=== PATIENT | female | born 1965 | race African-American/Black ===

== ENCOUNTER 2016-11-07 11:15 | Inpatient (IN) | payer OTHER ==
[2016-11-07 11:31] VITALS: BMI 31.8
--- NOTE | 2016-11-07 12:44 | HP ---
CIWA Score - CIWA Score Nausea/Vomitin-Mild Nausea/No Vomiting Muscle Tremors: 4-Moderate,w/Arms Extend Anxiety: 4-Mod. Anxious/Guarded Agitation: 1-Slight > Activity Paroxysmal Sweats: 1-Minimal Palms Moist Orientation: 0-Oriented Tacttile Disturbances: 1-Very Mild Itch/Numbness Auditory Disturbances: 1-Very Mild Visual Disturbances: 1-Very Mild Sensitivity Headache: 1-Very Mild CIWA-Ar Total Score: 15 Admission ROS BHS - HPI Chief Complaint: I want to nip it in the bud, get help while I can to stop using Allergies/Adverse Reactions: Allergies Allergy/AdvReac Type Severity Reaction Status Date / Time No Known Allergies Allergy Verified 11/07/16 12:08 History of Present Illness: 51 yo woman here for detox from alcohol, crack use. Last detox here in 2016. No seizures. Also HIV+, adherent with meds. Exam Limitations: Clinical Condition - Ebola screening Have you traveled outside of the country in the last 21 days: No Have you had contact with anyone from an Ebola affected area: No Have you been sick,other than usual withdrawal symptoms: No Do you have a fever: No - Review of Systems Constitutional: Loss of Appetite, Changes in sleep EENT: reports: Blurred Vision Respiratory: reports: No Symptoms reported Cardiac: reports: No Symptoms Reported GI: reports: Poor Appetite : reports: No Symptoms Reported Musculoskeletal: reports: No Symptoms Reported Integumentary: reports: Dryness Neuro: reports: Headache, Tremors Endocrine: reports: No Symptoms Reported Hematology: reports: No Symptoms Reported Psychiatric: reports: Judgement Intact, Mood/Affect Appropiate, Orientated x3, Anxious Other Systems: Reviewed and Negative Patient History - Patient Medical History Hx Anemia: No Hx Asthma: No Hx Chronic Obstructive Pulmonary Disease (COPD): No Hx Cancer: No Hx Cardiac Disorders: No Hx Congestive Heart Failure: No Hx Hypertension: Yes Hx Hypercholesterolemia: No Hx Pacemaker: No HX Cerebrovascular Accident: No Hx Seizures: No Hx Dementia: No Hx Diabetes: No Hx Gastrointestinal Disorders: No Hx Liver Disease: No Hx Genitourinary Disorders: No Hx Sexually Transmitted Disorders: Yes (treated for syphlis years ago by injection) Hx Renal Disease (ESRD): No Hx Thyroid Disease: No Hx Human Immunodeficiency Virus (HIV): Yes (diagnosed 1990, T cells about 250; vl <20) Hx Hepatitis C: No Hx Depression: Yes (on meds) Hx Suicide Attempt: No Hx Bipolar Disorder: Yes Hx Schizophrenia: Yes - Patient Surgical History Past Surgical History: Yes Hx Neurologic Surgery: No Hx Cataract Extraction: No Hx Cardiac Surgery: No Hx Lung Surgery: No Hx Breast Surgery: No Hx Breast Biopsy: No Hx Abdominal Surgery: No Hx Appendectomy: No Hx Cholecystectomy: No Hx Genitourinary Surgery: No Hx Section: No Hx Orthopedic Surgery: No Other Surgical History: excision of anal warts Anesthesia Reaction: No - PPD History Previous Implant?: Yes Documented Results: Negative w/proof Date: 10/09/15 Results: 0mm PPD to be Administered?: Yes - Reproductive History Patient is a Female of Child Bearing Age (11 -55 yrs old): Yes Last Menstrual Period: 12/11/15 Patient : No - Smoking Cessation Smoking history: Current every day smoker Have you smoked in the past 12 months: Yes Aproximately how many cigarettes per day: 4 Hx Chewing Tobacco Use: No Initiated information on smoking cessation: Yes 'Breaking Loose' booklet given: 11/07/16 (give on floor) - Substance & Tx. History Hx Alcohol Use: Yes Hx Substance Use: Yes Substance Use Type: Alcohol, Cocaine Hx Substance Use Treatment: Yes (detox, rehab) - Substances Abused Alcohol Route: Oral Frequency: Daily Amount used: Vodka(2 pints)/beer(3-40 oz) Age of first use: 14 Date of Last Use: 11/07/16 Crack Route: Smoking Frequency: 1-2 times per week Amount used: $400 Age of first use: 20 Date of Last Use: 11/06/16 Family Disease History - Family Disease History Family Disease History: CA: Sister (CA survivor), Other: Father (, etoh) , Mother (leukemia ) Admission Physical Exam BHS - Vital Signs Vital Signs: Vital Signs - 24 hr 11/07/16 11:28 Temperature 98.8 F Pulse Rate 81 Respiratory 20 Rate Blood Pressure 134/72 - Physical General Appearance: Yes: Nourished, Appropriately Dressed, Mild Distress, Obese , Tremorous, Anxious HEENTM: Yes: Hearing grossly Normal, Normal ENT Inspection, Normocephalic, Normal Voice, Pharynx Normal Respiratory: Yes: Normal Breath Sounds, No Respiratory Distress Neck: Yes: No masses,lesions,Nodules, Supple Breast: Yes: Breast Exam Deferred Cardiology: Yes: Regular Rhythm, Regular Rate Abdominal: Yes: Soft Genitourinary: Yes: Frequency Back: Yes: Normal Inspection Musculoskeletal: Yes: full range of Motion, Gait Steady Extremities: Yes: Normal Inspection, Normal Range of Motion, Non-Tender Neurological: Yes: Fully Oriented, Normal Mood/Affect, Normal Response Integumentary: Yes: Normal Color, Warm Lymphatic: Yes: Within Normal Limits - Diagnostic (1) Alcohol dependence with uncomplicated withdrawal Current Visit: Yes Status: Chronic (2) Cocaine dependence Current Visit: Yes Status: Chronic Qualifiers: Substance use status: uncomplicated Qualified Code(s): F14.20 - Cocaine dependence, uncomplicated (3) HIV disease Current Visit: Yes Status: Chronic (4) HTN (hypertension) Current Visit: Yes Status: Chronic Qualifiers: Hypertension type: essential hypertension Qualified Code(s): I10 - Essential (primary) hypertension (5) Nicotine dependence Current Visit: Yes Status: Chronic Qualifiers: Nicotine product type: cigarettes Substance use status: uncomplicated Qualified Code(s): F17.210 - Nicotine dependence, cigarettes, uncomplicated (6) Diabetes mellitus type 2, diet-controlled Current Visit: Yes Status: Chronic Comment: [facility] 135 (7) Obesity (BMI 30.0-34.9) Current Visit: Yes Status: Chronic (8) Syphilis contact, treated Current Visit: Yes Status: Resolved Comment: treated years ago by injection Cleared for Admission [facility] - Detox or Rehab [facility] Level of Care: Medically Managed Detox Regimen/Protocol: Librium [facility] Breath Alcohol Content Breath Alcohol Content: 0.041 Urine Pregancy Test - Result Urine Test Results: Negative- NO Line Present Urine Drug Screen - Results Drug Screen Negative: No Urine Drug Screen Results: SAMUEL-Cocaine
[2016-11-07] MEDS ORDERED: MAGNESIUM HYDROX 2400MG/30ML ORAL SUSPENSION 30 ML CUP PO PRN (12:59)
[2016-11-07] MEDS ORDERED: P-EPHED 60MG/TRIPROLIDI 2.5MG TABLET PO PRN (12:59)
[2016-11-07] MEDS ORDERED: MENTHOL/PHENOL 1 EACH UD MM PRN (12:59)
[2016-11-07] MEDS ORDERED: LOPERAMIDE HCL 2 MG CAPSULE PO PRN (12:59)
[2016-11-07] MEDS ORDERED: MAG HYDROX/AL HYDROX/SIMETH 30 ML UNIT-DOSE CUP PO PRN (12:59)
[2016-11-07] MEDS ORDERED: MAGNESIUM CITRATE 300 ML BOTTLE PO PRN (12:59)
[2016-11-07] MEDS ORDERED: IBUPROFEN 400 MG TABLET (FP) PO PRN (12:59)
[2016-11-07] MEDS ORDERED: ACETAMINOPHEN 325 MG TABLET (FP) PO PRN (12:59)
[2016-11-07] MEDS ORDERED: guaiFENesin/D-METHORPHAN HB 10 ML UNIT-DOSE CUPS PO PRN (12:59)
[2016-11-07] MEDS ORDERED: hydrOXYzine PAMOATE 50 MG CAPSULE (FP) PO PRN (12:59)
[2016-11-07] MEDS ORDERED: diphenhydrAMINE HCL 50 MG CAPSULE PO PRN (12:59)
[2016-11-07] MEDS ORDERED: chlordiazePOXIDE HCL 25 MG CAPSULE PO PRN (12:59)
[2016-11-07] MEDS ORDERED: chlordiazePOXIDE HCL 25 MG CAPSULE PO ONE (12:59)
[2016-11-07] MEDS: NICOTINE 7 MG/24 HOURS TOPICAL PATCH TD SCH (14:39)
[2016-11-07] MEDS: amLODIPine BESYLATE 10 MG TABLET (FP) PO SCH (14:40)
[2016-11-07] MEDS: chlordiazePOXIDE HCL 25 MG CAPSULE PO SCH ×2 (17:54→22:23)
[2016-11-07 19:24] LABS: URINE APPEARANCE CLEAR; URINE BILIRUBIN NEGATIVE (NEGATIVE); URINE BLOOD NEGATIVE (NEGATIVE); URINE COLOR COLORLESS; URINE GLUCOSE (UA) NEGATIVE (NEGATIVE); URINE KETONE NEGATIVE (NEGATIVE); URINE LEUK ESTERASE NEGATIVE (NEGATIVE); URINE NITRITE NEGATIVE (NEGATIVE); URINE PROTEIN NEGATIVE (NEGATIVE); URINE UROBILINOGEN NEGATIVE E.U./dl (0.2-1.0)
[2016-11-07] MEDS: THIAMINE HCL 100 MG TABLET (FP) PO SCH (22:23)
[2016-11-07] MEDS: ATORVASTATIN CA 20 MG TABLET (FP) PO SCH (22:59)
[2016-11-08] MEDS: chlordiazePOXIDE HCL 25 MG CAPSULE PO SCH ×4 (04:48→22:28)
[2016-11-08] MEDS: PRENATAL VITAMINS W/ FOLIC ACID TABLET (FP) PO SCH (10:13)
[2016-11-08] MEDS: amLODIPine BESYLATE 10 MG TABLET (FP) PO SCH (10:13)
[2016-11-08] MEDS: NICOTINE 7 MG/24 HOURS TOPICAL PATCH TD SCH (10:14)
[2016-11-08 10:25] LABS: MCH 31.9 pg (25.7-33.7); MCHC 32.6 g/dl (32.0-36.0); MEAN CELL VOLUME 97.8 fl (80-96); MEAN PLT VOLUME 8.1 fl (7.5-11.1); PLATELET COUNT 254 K/MM3 (134-434); RDW 14.3 % (11.6-15.6); WHITE BLOOD COUNT 5.1 K/mm3 (4.0-10.0)
[2016-11-08 10:51] LABS: ALBUMIN 3.2 g/dl (3.4-5.0); ALK PHOS 160 U/L (45-117); ANION GAP 9 (8-16); BILIRUBIN,TOTAL 0.3 mg/dL (0.2-1.0); CALCIUM 8.7 mg/dL (8.5-10.1); CO2 28 mmol/L (21-32); CREATININE 0.7 mg/dL (0.55-1.02); GLUCOSE,RANDOM 177 mg/dL (74-106); SGOT/AST 15 U/L (15-37); SGPT/ALT 21 U/L (12-78); TOT PROT 6.6 g/dl (6.4-8.2)
--- NOTE | 2016-11-08 11:44 | PN ---
S CIWA - CIWA Score Nausea/Vomitin Muscle Tremors: 3 Anxiety: 3 Agitation: 3 Paroxysmal Sweats: 1-Minimal Palms Moist Orientation: 0-Oriented Tacttile Disturbances: 1-Very Mild Itch/Numbness Auditory Disturbances: 1-Very Mild Visual Disturbances: 1-Very Mild Sensitivity Headache: 2-Mild CIWA-Ar Total Score: 18 BHS Progress Note (SOAP) Subjective: ALERT,IRRITABLE,ANXIOUS,INTERRUPTED SLEEP,TREMOR,PAIN IN THE BODY Objective: 11/08/16 11:41 Vital Signs Temperature 98.2 F 11/08/16 10:40 Pulse Rate 88 11/08/16 10:40 Respiratory Rate 20 11/08/16 10:40 Blood Pressure 145/95 11/08/16 10:40 O2 Sat by Pulse Oximetry (%) EKG NSR NO CHEST PAIN,NO SOB,NO DIZZINESS Laboratory Last Values WBC 5.1 K/mm3 (4.0-10.0) 11/08/16 07:45 RBC 4.24 M/mm3 (3.60-5.2) 11/08/16 07:45 Hgb 13.5 GM/dL (10.7-15.3) 11/08/16 07:45 Hct 41.5 % (32.4-45.2) 11/08/16 07:45 MCV 97.8 fl (80-96) H 11/08/16 07:45 MCHC 32.6 g/dl (32.0-36.0) 11/08/16 07:45 RDW 14.3 % (11.6-15.6) 11/08/16 07:45 Plt Count 254 K/MM3 (134-434) 11/08/16 07:45 MPV 8.1 fl (7.5-11.1) 11/08/16 07:45 Sodium 140 mmol/L (136-145) 11/08/16 07:45 Potassium 3.6 mmol/L (3.5-5.1) 11/08/16 07:45 Chloride 103 mmol/L (98-107) 11/08/16 07:45 Carbon Dioxide 28 mmol/L (21-32) 11/08/16 07:45 Anion Gap 9 (8-16) 11/08/16 07:45 BUN 12 mg/dL (7-18) 11/08/16 07:45 Creatinine 0.7 mg/dL (0.55-1.02) D 11/08/16 07:45 Creat Clearance w eGFR > 60 (>60) 11/08/16 07:45 POC Glucometer 135 UNITS (()) 11/07/16 12:41 Random Glucose 177 mg/dL (74-106) H D 11/08/16 07:45 Calcium 8.7 mg/dL (8.5-10.1) 11/08/16 07:45 Total Bilirubin 0.3 mg/dL (0.2-1.0) D 11/08/16 07:45 AST 15 U/L (15-37) D 11/08/16 07:45 ALT 21 U/L (12-78) D 11/08/16 07:45 Alkaline Phosphatase 160 U/L (45-117) H D 11/08/16 07:45 Total Protein 6.6 g/dl (6.4-8.2) 11/08/16 07:45 Albumin 3.2 g/dl (3.4-5.0) L 11/08/16 07:45 Urine Color Colorless 11/07/16 Unknown Urine Appearance Clear 11/07/16 Unknown Urine pH 6.0 (5.0-8.0) 11/07/16 Unknown Ur Specific [place] 1.003 (1.001-1.035) 11/07/16 Unknown Urine Protein Negative (NEGATIVE) 11/07/16 Unknown Urine Glucose (UA) Negative (NEGATIVE) 11/07/16 Unknown Urine Ketones Negative (NEGATIVE) 11/07/16 Unknown Urine Blood Negative (NEGATIVE) 11/07/16 Unknown Urine Nitrite Negative (NEGATIVE) 11/07/16 Unknown Urine Bilirubin Negative (NEGATIVE) 11/07/16 Unknown Urine Urobilinogen Negative E.U./dl (0.2-1.0) 11/07/16 Unknown Ur Leukocyte Esterase Negative (NEGATIVE) 11/07/16 Unknown 11/08/16 11:43 LABS PENDING Assessment: 11/08/16 11:43 WITHDRAWAL SYMPTOM Plan: CONTINUE DETOX,BGM MONITORING
[2016-11-08] MEDS: THIAMINE HCL 100 MG TABLET (FP) PO SCH (22:28)
[2016-11-08] MEDS: ATORVASTATIN CA 20 MG TABLET (FP) PO SCH (22:28)
[2016-11-09] MEDS: chlordiazePOXIDE HCL 25 MG CAPSULE PO SCH ×2 (05:15→10:08)
[2016-11-09] MEDS: amLODIPine BESYLATE 10 MG TABLET (FP) PO SCH (10:07)
[2016-11-09] MEDS: PRENATAL VITAMINS W/ FOLIC ACID TABLET (FP) PO SCH (10:07)
[2016-11-09] MEDS: NICOTINE 7 MG/24 HOURS TOPICAL PATCH TD SCH (10:08)
--- NOTE | 2016-11-09 10:57 | PN ---
S CIWA - CIWA Score Nausea/Vomitin Muscle Tremors: 2 Anxiety: 2 Agitation: 2 Paroxysmal Sweats: 3 Orientation: 0-Oriented Tacttile Disturbances: 2-Mild Itch/Numbness/Burn Auditory Disturbances: 0-None Visual Disturbances: 0-None Headache: 0-None Present CIWA-Ar Total Score: 13 BHS Progress Note (SOAP) Subjective: feeling better, sweats, Objective: 11/09/16 10:55 Vital Signs Temperature 97.7 F 11/09/16 09:59 Pulse Rate 82 11/09/16 09:59 Respiratory Rate 18 11/09/16 09:59 Blood Pressure 132/87 11/09/16 09:59 O2 Sat by Pulse Oximetry (%) Laboratory Tests 11/07/16 11/07/16 11/08/16 12:41 Unknown 04:50 WBC RBC Hgb Hct MCV MCHC RDW Plt Count MPV Sodium Potassium Chloride Carbon Dioxide Anion Gap BUN Creatinine Creat Clearance w eGFR POC Glucometer 135 173 Random Glucose Calcium Total Bilirubin AST ALT Alkaline Phosphatase Total Protein Albumin Urine Color Colorless Urine Appearance Clear Urine pH 6.0 Ur Specific [place] 1.003 Urine Protein Negative Urine Glucose (UA) Negative Urine Ketones Negative Urine Blood Negative Urine Nitrite Negative Urine Bilirubin Negative Urine Urobilinogen Negative Ur Leukocyte Esterase Negative RPR Titer T.pallidum Ab (MHA) 11/08/16 11/08/16 11/08/16 07:45 07:45 07:45 WBC 5.1 RBC 4.24 Hgb 13.5 Hct 41.5 MCV 97.8 H MCHC 32.6 RDW 14.3 Plt Count 254 MPV 8.1 Sodium 140 Potassium 3.6 Chloride 103 Carbon Dioxide 28 Anion Gap 9 BUN 12 Creatinine 0.7 D Creat Clearance w eGFR > 60 POC Glucometer Random Glucose 177 H D Calcium 8.7 Total Bilirubin 0.3 D AST 15 D ALT 21 D Alkaline Phosphatase 160 H D Total Protein 6.6 Albumin 3.2 L Urine Color Urine Appearance Urine pH Ur Specific [place] Urine Protein Urine Glucose (UA) Urine Ketones Urine Blood Urine Nitrite Urine Bilirubin Urine Urobilinogen Ur Leukocyte Esterase RPR Titer Reactive 1:1 H T.pallidum Ab (MHA) Previously reactive pt aox3 in nad ambulating Assessment: 11/09/16 10:55 withdrawal sx;s Plan: cont. detox increase fluids
--- NOTE | 2016-11-09 13:34 | CONSULT ---
[facility] Psychiatric Consult - Data Date of interview: 11/09/16 Admission source: [facility] Identifying data: Readmission to [facility] for this 51 y/o AA female seeking detox treatment for alcohol and cocaine (crack) dependence.Patient is , a mother of five,homeless,unemployed and supported on SSI benefits. Substance Abuse History: - Smoking Cessation. Smoking history: Current every day smoker. Have you smoked in the past 12 months: Yes. Aproximately how many cigarettes per day: 4. Hx Chewing Tobacco Use: No. Initiated information on smoking cessation: Yes. 'Breaking Loose' booklet given: 11/07/16 (give on floor ). - Substance & Tx. History. Hx Alcohol Use: Yes. Hx Substance Use: Yes. Substance Use Type: Alcohol, Cocaine. Hx Substance Use Treatment: Yes (detox, rehab). - Substances Abused. Alcohol. Route: Oral. Frequency: Daily. Amount used: Vodka(2 pints)/beer(3-40 oz). Age of first use: 14. Date of Last Use: 11/07/16. Crack. Route: Smoking. Frequency: 1-2 times per week. Amount used: $400. Age of first use: 20. Date of Last Use: 11/06/16. Confirmed by patient. Medical History: Hypertension,HIV infection,herpes genitalis and past treatment for syphilis. Psychiatric History: History of multiple psychiatric hospitalizations.Diagnosed with MDD.Prescribed celexa 30 mg/day + trazodone 50 mg/hs (self-report).Patient states that she gets her OPD care at the [facility] in [facility].Ms Flowers denies history of suicide attempts. Physical/Sexual Abuse/Trauma History: Patient denies. Mental Status Exam - Mental Status Exam Alert and Oriented to: Time, Place, Person Cognitive Function: Good Patient Appearance: Well Groomed Mood: Withdrawn, Anxious, Apprehensive Affect: Appropriate Patient Behavior: Fatigued, Appropriate, Cooperative Speech Pattern: Clear, Appropriate Voice Loudness: Normal Thought Process: Goal Oriented Thought Disorder: Not Present Hallucinations: Denies Suicidal Ideation: Denies Homicidal Ideation: Denies Insight/Judgement: Poor Sleep: Poorly, Difficulty falling asleep Muscle strength/Tone: Normal Gait/Station: Normal Psychiatric Findings - Problem List ([place] 1, 2,3) (1) Alcohol dependence with uncomplicated withdrawal Current Visit: Yes Status: Acute (2) Cocaine dependence Current Visit: Yes Status: Acute Qualifiers: Substance use status: uncomplicated Qualified Code(s): F14.20 - Cocaine dependence, uncomplicated (3) Nicotine dependence Current Visit: Yes Status: Acute Qualifiers: Nicotine product type: cigarettes Substance use status: uncomplicated Qualified Code(s): F17.210 - Nicotine dependence, cigarettes, uncomplicated (4) Drug-induced mood disorder Current Visit: Yes Status: Acute (5) MDD (major depressive disorder) Current Visit: Yes Status: Acute (6) Diabetes mellitus type 2, diet-controlled Current Visit: Yes Status: Chronic Comment: bg 135 (7) HIV disease Current Visit: Yes Status: Chronic (8) HTN (hypertension) Current Visit: Yes Status: Chronic Qualifiers: Hypertension type: essential hypertension Qualified Code(s): I10 - Essential (primary) hypertension (9) Obesity (BMI 30.0-34.9) Current Visit: Yes Status: Chronic (10) Syphilis contact, treated Current Visit: Yes Status: Resolved Comment: treated years ago by injection (11) Insomnia Current Visit: Yes Status: Acute - Initial Treatment Plan Initial Treatment Plan: Old records are reviewed.Psychoeducation.Detoxification.Medications : celexa 20 mg po daily + trazodone 50 mg po hs.Side effects/benefits of both drugs are discussed with the patient.She is in agreement with this careplan.Observation.Patient states that she will not need scripts at discharge (still with available refills from OPD provider).
[2016-11-09] MEDS ORDERED: CITALOPRAM HYDROBROMIDE 10 MG TABLET (FP) PO ONE (14:30)
[2016-11-09] MEDS ORDERED: CITALOPRAM HYDROBROMIDE 20 MG TABLET (FP) PO ONE (15:45)
[2016-11-09] MEDS: chlordiazePOXIDE 5 MG CAPSULE PO SCH ×2 (17:09→22:11)
[2016-11-09] MEDS: traZODone HCL 50 MG TABLET (FP) PO SCH (22:10)
[2016-11-09] MEDS: ATORVASTATIN CA 20 MG TABLET (FP) PO SCH (22:10)
[2016-11-09] MEDS: THIAMINE HCL 100 MG TABLET (FP) PO SCH (22:10)
[2016-11-10] MEDS: chlordiazePOXIDE 5 MG CAPSULE PO SCH ×2 (06:03→10:31)
[2016-11-10] MEDS ORDERED: CITALOPRAM HYDROBROMIDE 10 MG TABLET (FP) PO SCH (10:00)
[2016-11-10] MEDS: amLODIPine BESYLATE 10 MG TABLET (FP) PO SCH (10:30)
[2016-11-10] MEDS: PRENATAL VITAMINS W/ FOLIC ACID TABLET (FP) PO SCH (10:30)
[2016-11-10] MEDS: NICOTINE 7 MG/24 HOURS TOPICAL PATCH TD SCH (10:30)
[2016-11-10] MEDS: CITALOPRAM HYDROBROMIDE 20 MG TABLET (FP) PO SCH (10:30)
--- NOTE | 2016-11-10 10:33 | PN ---
BHS Progress Note (SOAP) Subjective: sweats agitation Objective: 11/10/16 10:32 Vital Signs Temperature 96.7 F L 11/10/16 06:14 Pulse Rate 74 11/10/16 06:14 Respiratory Rate 18 11/10/16 06:14 Blood Pressure 112/67 11/10/16 06:14 O2 Sat by Pulse Oximetry (%) awake/alert ambulating no acute distress Assessment: 11/10/16 10:33 withdrawal sx Plan: continue detox increase fluids d/c in am
[2016-11-10] MEDS: chlordiazePOXIDE HCL 10 MG CAPSULE PO SCH ×2 (17:12→22:29)
[2016-11-10] MEDS: THIAMINE HCL 100 MG TABLET (FP) PO SCH (22:29)
[2016-11-10] MEDS: traZODone HCL 50 MG TABLET (FP) PO SCH (22:29)
[2016-11-10] MEDS: ATORVASTATIN CA 20 MG TABLET (FP) PO SCH (22:29)
--- NOTE | 2016-11-10 23:40 | EKG ---
Test Reason : Blood Pressure : / mmHG Vent. Rate : 081 BPM Atrial Rate : 081 BPM P-R Int : 176 ms QRS Dur : 114 ms QT Int : 384 ms P-R-T Axes : 069 -34 011 degrees QTc Int : 446 ms NORMAL SINUS RHYTHM LEFT AXIS DEVIATION INCOMPLETE LEFT BUNDLE BRANCH BLOCK MINIMAL VOLTAGE CRITERIA FOR LVH, MAY BE NORMAL VARIANT NONSPECIFIC T WAVE ABNORMALITY ABNORMAL ECG NO PREVIOUS ECGS AVAILABLE Confirmed by REYNALDO GARCIA, KRIS ([id number]) on 11/10/2016 11:40:29 PM Referred By: Confirmed By:KRIS JACOBS MD
[2016-11-11] MEDS: chlordiazePOXIDE HCL 10 MG CAPSULE PO SCH (05:56)
--- NOTE | 2016-11-11 08:59 | DS ---
[facility] Detox Discharge Summary Admission Date: 11/07/16 Discharge Date: 11/11/16 - History Present History: Alcohol Dependence, Cocaine Dependence - Physical Exam Results Vital Signs: Vital Signs Temperature 97.7 F 11/11/16 06:00 Pulse Rate 77 11/11/16 06:00 Respiratory Rate 18 11/11/16 06:00 Blood Pressure 121/78 11/11/16 06:00 O2 Sat by Pulse Oximetry (%) - Treatment Hospital Course: Detox Protocol Followed, Detoxed Safely, Responded well, Discharged Condition Good - Medication Discharge Medications: Ambulatory Orders Abacavir/Dolutegravir/Lamivudi [Triumeq Tablet] 1 each PO DAILY 11/07/16 Citalopram Hydrobromide [Celexa -] 30 mg PO DAILY 11/07/16 Trazodone HCl 50 mg PO HS 11/07/16 Amlodipine Besylate [Norvasc -] 10 mg PO DAILY #30 tablet 11/11/16 Atorvastatin Ca [Lipitor] 20 mg PO HS #30 tablet 11/11/16 Pravastatin Sodium [Pravachol -] 40 mg PO HS #30 tab 11/11/16 - Diagnosis (1) Alcohol dependence with uncomplicated withdrawal Current Visit: Yes Status: Chronic (2) Cocaine dependence Current Visit: Yes Status: Chronic Qualifiers: Substance use status: uncomplicated Qualified Code(s): F14.20 - Cocaine dependence, uncomplicated (3) Nicotine dependence Current Visit: Yes Status: Chronic Qualifiers: Nicotine product type: cigarettes Substance use status: uncomplicated Qualified Code(s): F17.210 - Nicotine dependence, cigarettes, uncomplicated (4) Diabetes mellitus type 2, diet-controlled Current Visit: Yes Status: Chronic (5) HIV disease Current Visit: Yes Status: Chronic (6) HTN (hypertension) Current Visit: Yes Status: Chronic Qualifiers: Hypertension type: essential hypertension Qualified Code(s): I10 - Essential (primary) hypertension (7) Obesity (BMI 30.0-34.9) Current Visit: Yes Status: Chronic - AMA Did Patient Leave Against Medical Advice: No
[2016-11-11] MEDS: PRENATAL VITAMINS W/ FOLIC ACID TABLET (FP) PO SCH (09:28)
[2016-11-11] MEDS: amLODIPine BESYLATE 10 MG TABLET (FP) PO SCH (09:28)
[2016-11-11] MEDS: NICOTINE 7 MG/24 HOURS TOPICAL PATCH TD SCH (09:28)
[2016-11-11] MEDS: CITALOPRAM HYDROBROMIDE 20 MG TABLET (FP) PO SCH (09:28)
[2016-11-11 09:48] VITALS: BP 133/68; PULSE 67; TEMP 98.4
== END 2016-11-11 09:44 | disposition other institution (70) | DRG 774 ==
LOC: YASAS 11:15 → Y6N 13:11
PROVIDERS: ADMIT Internal Medicine; ATTEND Internal Medicine Addiction Medicine
PROC: HZ2ZZZZ Detoxification Services for Substance Abuse Treatment (ICD-10-PCS; principal; 2016-11-07)
DX: F10.230 Alcohol dependence with withdrawal, uncomplicated (principal); F14.20 Cocaine dependence, uncomplicated; F17.210 Nicotine dependence, cigarettes, uncomplicated; F19.24 Other psychoactive substance dependence with psychoactive substance-induced mood disorder; F33.9 Major depressive disorder, recurrent, unspecified; R73.03 Prediabetes; Z21 Asymptomatic human immunodeficiency virus [HIV] infection status; I10 Essential (primary) hypertension; E66.9 Obesity, unspecified; Z68.31 Body mass index [BMI] 31.0-31.9, adult; G47.00 Insomnia, unspecified; Z87.42 Personal history of other diseases of the female genital tract
CPT/HCPCS: 36415; 80053; 81003; 85027; 86593; 86780; 93005; 93010

== ENCOUNTER 2016-11-11 09:52 | Inpatient (IN) | payer OTHER ==
[2016-11-11 10:59] VITALS: BMI 33.2
[2016-11-11] MEDS ORDERED: ACETAMINOPHEN 325 MG TABLET (FP) PO PRN (14:36)
[2016-11-11] MEDS ORDERED: MAGNESIUM CITRATE 300 ML BOTTLE PO PRN (14:36)
[2016-11-11] MEDS ORDERED: guaiFENesin/D-METHORPHAN HB 10 ML UNIT-DOSE CUPS PO PRN (14:36)
[2016-11-11] MEDS ORDERED: diphenhydrAMINE HCL 50 MG CAPSULE PO PRN (14:36)
[2016-11-11] MEDS ORDERED: LOPERAMIDE HCL 2 MG CAPSULE PO PRN (14:36)
[2016-11-11] MEDS ORDERED: MAG HYDROX/AL HYDROX/SIMETH 30 ML UNIT-DOSE CUP PO PRN (14:36)
[2016-11-11] MEDS ORDERED: P-EPHED 60MG/TRIPROLIDI 2.5MG TABLET PO PRN (14:36)
[2016-11-11] MEDS ORDERED: MAGNESIUM HYDROX 2400MG/30ML ORAL SUSPENSION 30 ML CUP PO PRN (14:36)
[2016-11-11] MEDS ORDERED: IBUPROFEN 400 MG TABLET (FP) PO PRN (14:36)
[2016-11-11] MEDS ORDERED: MENTHOL/PHENOL 1 EACH UD MM PRN (14:36)
[2016-11-11] MEDS ORDERED: VITAMINS A AND D TOPICAL OINTMENT 60 GM TUBE TP PRN (14:38)
--- NOTE | 2016-11-11 14:40 | HP ---
SHANTANU GARCIA Rehab Assess/Revision - Admission History Admitted to Rehab from: [facility] [place] Date of Admission to Rehab: 11/11/16 - Vital signs Vital Signs: Vital Signs Period Temp Pulse Resp BP Sys/Kaufman Pulse Ox Last 24 Hr 98.4 F-98.4 F 82-82 18-18 119-119/78-78 - Findings Detox History & Physical reviewed: Yes Concur with findings: Yes
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
[2016-11-11] MEDS ORDERED: PT OWN MED DRAWER 7, Y5N ONE (16:03)
[2016-11-11] MEDS: traZODone HCL 50 MG TABLET (FP) PO SCH (21:24)
[2016-11-11] MEDS: ATORVASTATIN CA 20 MG TABLET (FP) PO SCH (21:24)
[2016-11-11] MEDS ORDERED: THIAMINE HCL 100 MG TABLET (FP) PO SCH (22:00)
[2016-11-11] MEDS ORDERED: ATORVASTATIN CA 20 MG PO SCH (22:00)
[2016-11-12 07:22] VITALS: TEMP 98.1
[2016-11-12] MEDS ORDERED: PT OWN MED DRAWER 7, Y5N ONE ×3 (08:50→20:14)
[2016-11-12] MEDS ORDERED: CITALOPRAM HYDROBROMIDE 10 MG TABLET (FP) PO SCH (10:00)
[2016-11-12] MEDS ORDERED: NICOTINE 7 MG/24 HOURS TOPICAL PATCH TD SCH (10:00)
[2016-11-12] MEDS ORDERED: PRENATAL VITAMINS W/ FOLIC ACID TABLET (FP) PO SCH (10:00)
[2016-11-12] MEDS ORDERED: amLODIPine BESYLATE 10 MG TABLET (FP) PO SCH (10:00)
[2016-11-12] MEDS ORDERED: PATIENT'S OWN MEDICATION (NON-FORMULARY) (Amlodipine Besylate [Norvasc -] 10 MG) PO SCH (10:00)
[2016-11-12 11:20] VITALS: BP 144/81; PULSE 83
[2016-11-12] MEDS ORDERED: COLLOIDAL OATMEAL 1 BAR EACH TP PRN (14:30)
[2016-11-12] MEDS: ATORVASTATIN CA 20 MG TABLET (FP) PO SCH (23:08)
[2016-11-12] MEDS: traZODone HCL 50 MG TABLET (FP) PO SCH (23:08)
--- NOTE | 2016-11-30 15:04 | PN ---
S Progress Note Note: Patient left AMA this program 11/13/16.See staff notes for details.
== END 2016-11-12 20:20 | disposition left against medical advice (07) | DRG 770 ==
LOC: YASAS 09:52 → Y3E 09:55
PROVIDERS: ADMIT Psychiatry & Neurology Psychiatry; ATTEND Psychiatry & Neurology Psychiatry
PROC: HZ2ZZZZ Detoxification Services for Substance Abuse Treatment (ICD-10-PCS; principal; 2016-11-12)
DX: F10.20 Alcohol dependence, uncomplicated (principal); F14.20 Cocaine dependence, uncomplicated; F33.9 Major depressive disorder, recurrent, unspecified; I10 Essential (primary) hypertension; E11.9 Type 2 diabetes mellitus without complications; Z21 Asymptomatic human immunodeficiency virus [HIV] infection status

== ENCOUNTER 2017-01-11 08:19 | Inpatient (IN) | payer OTHER ==
[2017-01-11 09:49] VITALS: BMI 31.6
--- NOTE | 2017-01-11 12:39 | HP ---
Admission [facility] - [facility] Chief Complaint: REHAB TX FOR DRUG ADDICTION Allergies/Adverse Reactions: Allergies Allergy/AdvReac Type Severity Reaction Status Date / Time No Known Allergies Allergy Verified 11/07/16 12:08 History of Present Illness: 52 Y/O AA/FEMALE WITH A HX OF ALCOHOL AND COCAINE DEPENDENCE SEEKING REHAB TX. Exam Limitations: No Limitations - Ebola screening Have you traveled outside of the country in the last 21 days: No Have you had contact with anyone from an Ebola affected area: No Have you been sick,other than usual withdrawal symptoms: No Do you have a fever: No - Review of Systems Constitutional: Chills, Night Sweats, Changes in sleep EENT: reports: Blurred Vision (WEARS GLASSES), Dental Problems (MISSING UPPER TEETH) Respiratory: reports: No Symptoms reported Cardiac: reports: No Symptoms Reported GI: reports: Constipated, Diarrhea, Nausea, Vomiting, Abdominal cramping : reports: Frequency Musculoskeletal: reports: Back Pain Integumentary: reports: No Symptoms Reported Neuro: reports: Headache, Tremors, Unsteady Gait Endocrine: reports: Increased Urine Hematology: reports: No Symptoms Reported Psychiatric: reports: Orientated x3, Anxious, Depressed Other Systems: Reviewed and Negative Patient History - Patient Medical History Hx Anemia: No Hx Asthma: No Hx Chronic Obstructive Pulmonary Disease (COPD): No Hx Cancer: No Hx Cardiac Disorders: No Hx Congestive Heart Failure: No Hx Hypertension: Yes (ON MED) Hx Hypercholesterolemia: Yes (ON MED) Hx Pacemaker: No HX Cerebrovascular Accident: No Hx Seizures: No Hx Dementia: No Hx Diabetes: Yes (Control by diet-NO MEDS) Hx Gastrointestinal Disorders: No Hx Liver Disease: No Hx Genitourinary Disorders: No 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) Hx Renal Disease (ESRD): No Hx Thyroid Disease: No Hx Human Immunodeficiency Virus (HIV): Yes (diagnosed 1990, T cells about 250; vl <20) Hx Hepatitis C: No Hx Depression: Yes (ON MED) Hx Suicide Attempt: No (DENIES) Hx Bipolar Disorder: Yes Hx Schizophrenia: No - Patient Surgical History Past Surgical History: Yes Hx Neurologic Surgery: No Hx Cataract Extraction: No Hx Cardiac Surgery: No Hx Lung Surgery: No Hx Breast Surgery: No Hx Breast Biopsy: No Hx Abdominal Surgery: No Hx Appendectomy: No Hx Cholecystectomy: No Hx Genitourinary Surgery: No Hx Section: No Hx Orthopedic Surgery: No Hx Hysterectomy: No Other Surgical History: excision of anal warts Anesthesia Reaction: No - PPD History Previous Implant?: Yes Documented Results: Negative w/proof Date: 11/09/16 Results: 0mm PPD to be Administered?: No - Reproductive History Patient is a Female of Child Bearing Age (11 -55 yrs old): Yes Last Menstrual Period: 11/10/16 Patient : No - Smoking Cessation Smoking history: Current every day smoker Have you smoked in the past 12 months: Yes Aproximately how many cigarettes per day: 4 Hx Chewing Tobacco Use: No Initiated information on smoking cessation: Yes 'Breaking Loose' booklet given: 01/11/17 - Substance & Tx. History Hx Alcohol Use: Yes (VODKA/MALT LIQUOR) Hx Substance Use: Yes (COCAINE) Substance Use Type: Alcohol, Cocaine Hx Substance Use Treatment: Yes ([facility]) - Substances Abused VODKA/MALT LIQUOR Amount used: 1 PT/ 40 oz Age of first use: 14 Date of Last Use: 01/08/17 Cocaine Route: Smoking Frequency: 1-3 times last 30 days Amount used: $200-300 Age of first use: 20 Date of Last Use: 01/08/17 Family Disease History - Family Disease History Family Disease History: CA: Sister (CA survivor), Other: Father (, etoh) , Mother (leukemia ) Admission Physical Exam S - Vital Signs Vital Signs: Vital Signs - 24 hr 01/11/17 09:41 Temperature 96.6 F L Pulse Rate 83 Respiratory 19 Rate Blood Pressure 152/111 - Physical General Appearance: Yes: No Apparent Distress, Anxious HEENTM: Yes: EOMI, Normocephalic, PRINCE, Pharynx Normal Respiratory: Yes: Chest Non-Tender, Lungs Clear, Normal Breath Sounds, No Respiratory Distress Breast: Yes: Breast Exam Deferred Cardiology: Yes: Regular Rhythm, Regular Rate, S1, S2 Abdominal: Yes: Normal Bowel Sounds, Non Tender, Soft Genitourinary: Yes: Other (N/C) Back: Yes: Within Normal Limits Musculoskeletal: Yes: full range of Motion, Gait Steady Extremities: Yes: Normal Range of Motion, Non-Tender Neurological: Yes: director of land II-XII NML intact, Fully Oriented, Alert Integumentary: Yes: Dry, Warm Lymphatic: Yes: Within Normal Limits - Diagnostic (1) Alcohol dependence with uncomplicated withdrawal Current Visit: Yes Status: Chronic (2) Diabetes mellitus type 2, diet-controlled Current Visit: No Status: Chronic Comment: bgm 135 (3) HIV disease Current Visit: No Status: Chronic (4) HTN (hypertension) Current Visit: Yes Status: Chronic Qualifiers: Hypertension type: essential hypertension (5) Nicotine dependence Current Visit: Yes Status: Acute Qualifiers: Nicotine product type: cigarettes Substance use status: in withdrawal Qualified Code(s): F17.213 - Nicotine dependence, cigarettes, with withdrawal (6) Obesity (BMI 30.0-34.9) Current Visit: Yes Status: Chronic (7) Cocaine dependence, uncomplicated Current Visit: Yes Status: Chronic Cleared for Admission [facility] - Detox or Rehab Claeared for Rehab Admission: Yes [facility] Breath Alcohol Content Breath Alcohol Content: 0 Urine Pregancy Test - Result Urine Test Results: Negative- NO Line Present Urine Drug Screen - Results Drug Screen Negative: No Urine Drug Screen Results: SAMUEL-Cocaine
[2017-01-11] MEDS ORDERED: MAGNESIUM CITRATE 300 ML BOTTLE PO PRN (12:50)
[2017-01-11] MEDS ORDERED: diphenhydrAMINE HCL 50 MG CAPSULE PO PRN (12:50)
[2017-01-11] MEDS ORDERED: P-EPHED 60MG/TRIPROLIDI 2.5MG TABLET PO PRN (12:50)
[2017-01-11] MEDS ORDERED: guaiFENesin/D-METHORPHAN HB 10 ML UNIT-DOSE CUPS PO PRN (12:50)
[2017-01-11] MEDS ORDERED: MAGNESIUM HYDROX 2400MG/30ML ORAL SUSPENSION 30 ML CUP PO PRN (12:50)
[2017-01-11] MEDS ORDERED: MAG HYDROX/AL HYDROX/SIMETH 30 ML UNIT-DOSE CUP PO PRN (12:50)
[2017-01-11] MEDS ORDERED: ACETAMINOPHEN 325 MG TABLET (FP) PO PRN (12:50)
[2017-01-11] MEDS ORDERED: MENTHOL/PHENOL 1 EACH UD MM PRN (12:50)
[2017-01-11] MEDS ORDERED: LOPERAMIDE HCL 2 MG CAPSULE PO PRN (12:50)
[2017-01-11 18:54] LABS: URINE APPEARANCE SLCLOUDY; URINE BILIRUBIN NEGATIVE (NEGATIVE); URINE BLOOD NEGATIVE (NEGATIVE); URINE COLOR YELLOW; URINE GLUCOSE (UA) NEGATIVE (NEGATIVE); URINE KETONE NEGATIVE (NEGATIVE); URINE LEUK ESTERASE NEGATIVE (NEGATIVE); URINE NITRITE NEGATIVE (NEGATIVE); URINE UROBILINOGEN NEGATIVE E.U./dl (0.2-1.0)
[2017-01-11 19:10] LABS: URINE PROTEIN 2+ (NEGATIVE)
[2017-01-11 19:16] LABS: URINE BACTERIA RARE /hpf (NONE SEEN); URINE MUCUS RARE; URINE RBC 5 /hpf (0-3); URINE WBC 4 /hpf (3-5)
[2017-01-11] MEDS: PATIENT'S OWN MEDICATION (NON-FORMULARY) (Pravastatin Sodium 40 MG) PO SCH (21:50)
[2017-01-11] MEDS: THIAMINE HCL 100 MG TABLET (FP) PO SCH (21:50)
[2017-01-11] MEDS: NICOTINE 14 MG/24 HOURS TOPICAL PATCH TD SCH (21:51)
[2017-01-11] MEDS: amLODIPine BESYLATE 10 MG TABLET (FP) PO SCH (21:52)
[2017-01-11] MEDS ORDERED: PT OWN MED DRAWER 7, Y5N ONE (22:45)
[2017-01-12] MEDS ORDERED: PT OWN MED DRAWER 7, Y5N ONE ×6 (09:02→21:38)
[2017-01-12 10:12] LABS: MCHC 32.8 g/dl (32.0-36.0); MEAN CELL VOLUME 94.5 fl (80-96); MEAN PLT VOLUME 8.1 fl (7.5-11.1); PLATELET COUNT 248 K/MM3 (134-434); RDW 13.7 % (11.6-15.6); WHITE BLOOD COUNT 3.7 K/mm3 (4.0-10.0)
[2017-01-12] MEDS: amLODIPine BESYLATE 10 MG TABLET (FP) PO SCH (10:45)
[2017-01-12] MEDS: CITALOPRAM HYDROBROMIDE 20 MG TABLET (FP) PO SCH (10:45)
[2017-01-12] MEDS: PRENATAL VITAMINS W/ FOLIC ACID TABLET (FP) PO SCH (10:45)
[2017-01-12] MEDS: NICOTINE 14 MG/24 HOURS TOPICAL PATCH TD SCH (10:45)
[2017-01-12 11:18] LABS: ALBUMIN 3.4 g/dl (3.4-5.0); BILIRUBIN,TOTAL 0.3 mg/dL (0.2-1.0); COCKROFT - GAULT 82.0505; CREATININE 1.1 mg/dL (0.55-1.02); TOT PROT 6.9 g/dl (6.4-8.2)
--- NOTE | 2017-01-12 11:59 | EKG ---
Test Reason : Blood Pressure : / mmHG Vent. Rate : 077 BPM Atrial Rate : 077 BPM P-R Int : 192 ms QRS Dur : 096 ms QT Int : 392 ms P-R-T Axes : -14 096 042 degrees QTc Int : 443 ms NORMAL SINUS RHYTHM RIGHTWARD AXIS POOR R WAVE PROGRESSION ABNORMAL ECG WHEN COMPARED WITH ECG OF 07-NOV-2016 13:16, NO SIGNIFICANT CHANGE WAS FOUND Confirmed by CORNELL GARCIA, ASHLEY ([id number]) on 01/12/2017 11:59:01 AM Referred By: Lisa Gallardo Confirmed By:ASHLEY SARABIA MD
[2017-01-12] MEDS: VITAMINS A AND D TOPICAL OINTMENT 60 GM TUBE TP SCH ×2 (13:26→21:37)
[2017-01-12] MEDS: THIAMINE HCL 100 MG TABLET (FP) PO SCH (21:35)
[2017-01-12] MEDS: PATIENT'S OWN MEDICATION (NON-FORMULARY) (Pravastatin Sodium 40 MG) PO SCH (21:38)
[2017-01-13] MEDS: CITALOPRAM HYDROBROMIDE 20 MG TABLET (FP) PO SCH (09:37)
[2017-01-13] MEDS: amLODIPine BESYLATE 10 MG TABLET (FP) PO SCH (09:38)
[2017-01-13] MEDS: PRENATAL VITAMINS W/ FOLIC ACID TABLET (FP) PO SCH (09:38)
[2017-01-13] MEDS: NICOTINE 14 MG/24 HOURS TOPICAL PATCH TD SCH (09:38)
[2017-01-13] MEDS: VITAMINS A AND D TOPICAL OINTMENT 60 GM TUBE TP SCH ×2 (09:39→21:37)
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
[2017-01-13] MEDS: THIAMINE HCL 100 MG TABLET (FP) PO SCH (21:36)
[2017-01-13] MEDS: PATIENT'S OWN MEDICATION (NON-FORMULARY) (Pravastatin Sodium 40 MG) PO SCH (21:36)
[2017-01-14] MEDS: CITALOPRAM HYDROBROMIDE 20 MG TABLET (FP) PO SCH (10:16)
[2017-01-14] MEDS: amLODIPine BESYLATE 10 MG TABLET (FP) PO SCH (10:16)
[2017-01-14] MEDS: PRENATAL VITAMINS W/ FOLIC ACID TABLET (FP) PO SCH (10:16)
[2017-01-14] MEDS: VITAMINS A AND D TOPICAL OINTMENT 60 GM TUBE TP SCH ×2 (10:17→21:37)
[2017-01-14] MEDS: NICOTINE 14 MG/24 HOURS TOPICAL PATCH TD SCH (10:17)
[2017-01-14] MEDS ORDERED: CITALOPRAM HYDROBROMIDE 10 MG TABLET (FP) PO STA (10:49)
[2017-01-14] MEDS: PATIENT'S OWN MEDICATION (NON-FORMULARY) (Pravastatin Sodium 40 MG) PO SCH (21:37)
[2017-01-14] MEDS: THIAMINE HCL 100 MG TABLET (FP) PO SCH (21:37)
[2017-01-15] MEDS: CITALOPRAM HYDROBROMIDE 10 MG TABLET (FP) PO SCH (10:22)
[2017-01-15] MEDS: NICOTINE 14 MG/24 HOURS TOPICAL PATCH TD SCH (10:23)
[2017-01-15] MEDS: VITAMINS A AND D TOPICAL OINTMENT 60 GM TUBE TP SCH ×2 (10:23→21:52)
[2017-01-15] MEDS: PRENATAL VITAMINS W/ FOLIC ACID TABLET (FP) PO SCH (10:23)
[2017-01-15] MEDS: amLODIPine BESYLATE 10 MG TABLET (FP) PO SCH (10:23)
[2017-01-15] MEDS ORDERED: PT OWN MED DRAWER 7, Y5N ONE (20:07)
[2017-01-15] MEDS: THIAMINE HCL 100 MG TABLET (FP) PO SCH (21:52)
[2017-01-15] MEDS: PATIENT'S OWN MEDICATION (NON-FORMULARY) (Pravastatin Sodium 40 MG) PO SCH (21:52)
[2017-01-16] MEDS ORDERED: PT OWN MED DRAWER 7, Y5N ONE (09:03)
[2017-01-16] MEDS: VITAMINS A AND D TOPICAL OINTMENT 60 GM TUBE TP SCH ×2 (10:40→21:39)
[2017-01-16] MEDS: CITALOPRAM HYDROBROMIDE 10 MG TABLET (FP) PO SCH (10:40)
[2017-01-16] MEDS: amLODIPine BESYLATE 10 MG TABLET (FP) PO SCH (10:40)
[2017-01-16] MEDS: PRENATAL VITAMINS W/ FOLIC ACID TABLET (FP) PO SCH (10:40)
[2017-01-16] MEDS: NICOTINE 14 MG/24 HOURS TOPICAL PATCH TD SCH (10:41)
[2017-01-16] MEDS: THIAMINE HCL 100 MG TABLET (FP) PO SCH (21:38)
[2017-01-16] MEDS: PATIENT'S OWN MEDICATION (NON-FORMULARY) (Pravastatin Sodium 40 MG) PO SCH (21:39)
[2017-01-17] MEDS ORDERED: PT OWN MED DRAWER 7, Y5N ONE (08:52)
[2017-01-17] MEDS: VITAMINS A AND D TOPICAL OINTMENT 60 GM TUBE TP SCH ×2 (10:12→21:35)
[2017-01-17] MEDS: CITALOPRAM HYDROBROMIDE 10 MG TABLET (FP) PO SCH (10:12)
[2017-01-17] MEDS: PRENATAL VITAMINS W/ FOLIC ACID TABLET (FP) PO SCH (10:12)
[2017-01-17] MEDS: amLODIPine BESYLATE 10 MG TABLET (FP) PO SCH (10:12)
[2017-01-17] MEDS: NICOTINE 14 MG/24 HOURS TOPICAL PATCH TD SCH (10:13)
[2017-01-17] MEDS: PATIENT'S OWN MEDICATION (NON-FORMULARY) (Pravastatin Sodium 40 MG) PO SCH (21:35)
[2017-01-17] MEDS: THIAMINE HCL 100 MG TABLET (FP) PO SCH (21:35)
[2017-01-18] MEDS ORDERED: PT OWN MED DRAWER 7, Y5N ONE (08:47)
[2017-01-18] MEDS: PRENATAL VITAMINS W/ FOLIC ACID TABLET (FP) PO SCH (10:42)
[2017-01-18] MEDS: CITALOPRAM HYDROBROMIDE 10 MG TABLET (FP) PO SCH (10:42)
[2017-01-18] MEDS: amLODIPine BESYLATE 10 MG TABLET (FP) PO SCH (10:42)
[2017-01-18] MEDS: VITAMINS A AND D TOPICAL OINTMENT 60 GM TUBE TP SCH ×2 (10:43→21:39)
[2017-01-18] MEDS: NICOTINE 14 MG/24 HOURS TOPICAL PATCH TD SCH (10:44)
[2017-01-18] MEDS: THIAMINE HCL 100 MG TABLET (FP) PO SCH (21:39)
[2017-01-18] MEDS: PATIENT'S OWN MEDICATION (NON-FORMULARY) (Pravastatin Sodium 40 MG) PO SCH (21:40)
[2017-01-19] MEDS ORDERED: PT OWN MED DRAWER 7, Y5N ONE ×2 (08:45→21:09)
[2017-01-19] MEDS: VITAMINS A AND D TOPICAL OINTMENT 60 GM TUBE TP SCH ×2 (10:50→22:10)
[2017-01-19] MEDS: amLODIPine BESYLATE 10 MG TABLET (FP) PO SCH (10:51)
[2017-01-19] MEDS: PRENATAL VITAMINS W/ FOLIC ACID TABLET (FP) PO SCH (10:51)
[2017-01-19] MEDS: NICOTINE 14 MG/24 HOURS TOPICAL PATCH TD SCH (10:51)
[2017-01-19] MEDS: CITALOPRAM HYDROBROMIDE 10 MG TABLET (FP) PO SCH (10:51)
[2017-01-19] MEDS: NICOTINE POLACRILEX 2 MG GUM BUC PRN (18:38)
[2017-01-19] MEDS: PATIENT'S OWN MEDICATION (NON-FORMULARY) (Pravastatin Sodium 40 MG) PO SCH (22:10)
[2017-01-19] MEDS: THIAMINE HCL 100 MG TABLET (FP) PO SCH (22:10)
[2017-01-20] MEDS ORDERED: PT OWN MED DRAWER 7, Y5N ONE (08:45)
[2017-01-20] MEDS: PRENATAL VITAMINS W/ FOLIC ACID TABLET (FP) PO SCH (09:37)
[2017-01-20] MEDS: amLODIPine BESYLATE 10 MG TABLET (FP) PO SCH (09:37)
[2017-01-20] MEDS: CITALOPRAM HYDROBROMIDE 10 MG TABLET (FP) PO SCH (09:37)
[2017-01-20] MEDS: VITAMINS A AND D TOPICAL OINTMENT 60 GM TUBE TP SCH ×2 (09:38→21:55)
[2017-01-20] MEDS: NICOTINE 14 MG/24 HOURS TOPICAL PATCH TD SCH (09:39)
[2017-01-20] MEDS: PATIENT'S OWN MEDICATION (NON-FORMULARY) (Pravastatin Sodium 40 MG) PO SCH (21:54)
[2017-01-20] MEDS: THIAMINE HCL 100 MG TABLET (FP) PO SCH (21:54)
[2017-01-21] MEDS ORDERED: PT OWN MED DRAWER 7, Y5N ONE (08:44)
[2017-01-21] MEDS: CITALOPRAM HYDROBROMIDE 10 MG TABLET (FP) PO SCH (10:34)
[2017-01-21] MEDS: PRENATAL VITAMINS W/ FOLIC ACID TABLET (FP) PO SCH (10:34)
[2017-01-21] MEDS: amLODIPine BESYLATE 10 MG TABLET (FP) PO SCH (10:34)
[2017-01-21] MEDS: VITAMINS A AND D TOPICAL OINTMENT 60 GM TUBE TP SCH ×2 (10:36→21:39)
[2017-01-21] MEDS: NICOTINE POLACRILEX 2 MG GUM BUC PRN (10:36)
[2017-01-21] MEDS: NICOTINE 14 MG/24 HOURS TOPICAL PATCH TD SCH (10:36)
[2017-01-21] MEDS: THIAMINE HCL 100 MG TABLET (FP) PO SCH (21:39)
[2017-01-21] MEDS: PATIENT'S OWN MEDICATION (NON-FORMULARY) (Pravastatin Sodium 40 MG) PO SCH (21:39)
[2017-01-22] MEDS: VITAMINS A AND D TOPICAL OINTMENT 60 GM TUBE TP SCH ×2 (10:42→21:54)
[2017-01-22] MEDS: PRENATAL VITAMINS W/ FOLIC ACID TABLET (FP) PO SCH (10:42)
[2017-01-22] MEDS: CITALOPRAM HYDROBROMIDE 10 MG TABLET (FP) PO SCH (10:42)
[2017-01-22] MEDS: amLODIPine BESYLATE 10 MG TABLET (FP) PO SCH (10:42)
[2017-01-22] MEDS: NICOTINE 14 MG/24 HOURS TOPICAL PATCH TD SCH (10:43)
[2017-01-22] MEDS: THIAMINE HCL 100 MG TABLET (FP) PO SCH (21:54)
[2017-01-22] MEDS: PATIENT'S OWN MEDICATION (NON-FORMULARY) (Pravastatin Sodium 40 MG) PO SCH (21:56)
[2017-01-22] MEDS ORDERED: PT OWN MED DRAWER 7, Y5N ONE (21:56)
[2017-01-23] MEDS: PRENATAL VITAMINS W/ FOLIC ACID TABLET (FP) PO SCH (09:23)
[2017-01-23] MEDS: CITALOPRAM HYDROBROMIDE 10 MG TABLET (FP) PO SCH (09:23)
[2017-01-23] MEDS: amLODIPine BESYLATE 10 MG TABLET (FP) PO SCH (09:24)
[2017-01-23] MEDS: NICOTINE 14 MG/24 HOURS TOPICAL PATCH TD SCH (09:24)
[2017-01-23] MEDS: VITAMINS A AND D TOPICAL OINTMENT 60 GM TUBE TP SCH ×2 (09:24→21:20)
[2017-01-23] MEDS ORDERED: PT OWN MED DRAWER 7, Y5N ONE ×2 (10:09→20:09)
[2017-01-23] MEDS: PATIENT'S OWN MEDICATION (NON-FORMULARY) (Pravastatin Sodium 40 MG) PO SCH (21:20)
[2017-01-23] MEDS: THIAMINE HCL 100 MG TABLET (FP) PO SCH (21:20)
[2017-01-24] MEDS: CITALOPRAM HYDROBROMIDE 10 MG TABLET (FP) PO SCH (10:03)
[2017-01-24] MEDS: PRENATAL VITAMINS W/ FOLIC ACID TABLET (FP) PO SCH (10:04)
[2017-01-24] MEDS: VITAMINS A AND D TOPICAL OINTMENT 60 GM TUBE TP SCH ×2 (10:04→21:15)
[2017-01-24] MEDS: amLODIPine BESYLATE 10 MG TABLET (FP) PO SCH (10:04)
[2017-01-24] MEDS: NICOTINE 14 MG/24 HOURS TOPICAL PATCH TD SCH (10:04)
[2017-01-24] MEDS: THIAMINE HCL 100 MG TABLET (FP) PO SCH (21:15)
[2017-01-24] MEDS: PATIENT'S OWN MEDICATION (NON-FORMULARY) (Pravastatin Sodium 40 MG) PO SCH (21:15)
[2017-01-25] MEDS ORDERED: PT OWN MED DRAWER 7, Y5N ONE (09:40)
[2017-01-25] MEDS: amLODIPine BESYLATE 10 MG TABLET (FP) PO SCH (10:27)
[2017-01-25] MEDS: CITALOPRAM HYDROBROMIDE 10 MG TABLET (FP) PO SCH (10:27)
[2017-01-25] MEDS: PRENATAL VITAMINS W/ FOLIC ACID TABLET (FP) PO SCH (10:27)
[2017-01-25] MEDS: NICOTINE 14 MG/24 HOURS TOPICAL PATCH TD SCH (10:28)
[2017-01-25] MEDS: VITAMINS A AND D TOPICAL OINTMENT 60 GM TUBE TP SCH ×2 (10:28→21:46)
[2017-01-25] MEDS: THIAMINE HCL 100 MG TABLET (FP) PO SCH (21:45)
[2017-01-25] MEDS: PATIENT'S OWN MEDICATION (NON-FORMULARY) (Pravastatin Sodium 40 MG) PO SCH (21:46)
[2017-01-26] MEDS: PRENATAL VITAMINS W/ FOLIC ACID TABLET (FP) PO SCH (10:04)
[2017-01-26] MEDS: VITAMINS A AND D TOPICAL OINTMENT 60 GM TUBE TP SCH ×2 (10:04→21:20)
[2017-01-26] MEDS: NICOTINE 14 MG/24 HOURS TOPICAL PATCH TD SCH (10:05)
[2017-01-26] MEDS: amLODIPine BESYLATE 10 MG TABLET (FP) PO SCH (10:05)
[2017-01-26] MEDS: CITALOPRAM HYDROBROMIDE 10 MG TABLET (FP) PO SCH (10:05)
[2017-01-26] MEDS: IBUPROFEN 400 MG TABLET (FP) PO PRN (10:30)
[2017-01-26] MEDS: PATIENT'S OWN MEDICATION (NON-FORMULARY) (Pravastatin Sodium 40 MG) PO SCH (21:20)
[2017-01-26] MEDS: THIAMINE HCL 100 MG TABLET (FP) PO SCH (21:20)
[2017-01-27] MEDS ORDERED: PT OWN MED DRAWER 7, Y5N ONE (09:23)
[2017-01-27] MEDS: VITAMINS A AND D TOPICAL OINTMENT 60 GM TUBE TP SCH ×2 (09:57→21:28)
[2017-01-27] MEDS: amLODIPine BESYLATE 10 MG TABLET (FP) PO SCH (09:58)
[2017-01-27] MEDS: NICOTINE 14 MG/24 HOURS TOPICAL PATCH TD SCH (09:58)
[2017-01-27] MEDS: CITALOPRAM HYDROBROMIDE 10 MG TABLET (FP) PO SCH (09:58)
[2017-01-27] MEDS: PRENATAL VITAMINS W/ FOLIC ACID TABLET (FP) PO SCH (09:59)
[2017-01-27] MEDS: IBUPROFEN 400 MG TABLET (FP) PO PRN (18:48)
[2017-01-27] MEDS: THIAMINE HCL 100 MG TABLET (FP) PO SCH (21:27)
[2017-01-27] MEDS: PATIENT'S OWN MEDICATION (NON-FORMULARY) (Pravastatin Sodium 40 MG) PO SCH (21:28)
[2017-01-28] MEDS: NICOTINE 14 MG/24 HOURS TOPICAL PATCH TD SCH (10:07)
[2017-01-28] MEDS: VITAMINS A AND D TOPICAL OINTMENT 60 GM TUBE TP SCH (10:08)
[2017-01-28] MEDS: amLODIPine BESYLATE 10 MG TABLET (FP) PO SCH (10:08)
[2017-01-28] MEDS: PRENATAL VITAMINS W/ FOLIC ACID TABLET (FP) PO SCH (10:08)
[2017-01-28] MEDS: CITALOPRAM HYDROBROMIDE 10 MG TABLET (FP) PO SCH (10:08)
[2017-01-28] MEDS: THIAMINE HCL 100 MG TABLET (FP) PO SCH (21:33)
[2017-01-28] MEDS: PATIENT'S OWN MEDICATION (NON-FORMULARY) (Pravastatin Sodium 40 MG) PO SCH (21:34)
[2017-01-29] MEDS ORDERED: PT OWN MED DRAWER 7, Y5N ONE ×2 (09:04→19:56)
[2017-01-29] MEDS: PRENATAL VITAMINS W/ FOLIC ACID TABLET (FP) PO SCH (10:23)
[2017-01-29] MEDS: CITALOPRAM HYDROBROMIDE 10 MG TABLET (FP) PO SCH (10:24)
[2017-01-29] MEDS: amLODIPine BESYLATE 10 MG TABLET (FP) PO SCH (10:24)
[2017-01-29] MEDS: VITAMINS A AND D TOPICAL OINTMENT 60 GM TUBE TP SCH ×2 (10:25→21:50)
[2017-01-29] MEDS: NICOTINE 14 MG/24 HOURS TOPICAL PATCH TD SCH (10:25)
[2017-01-29] MEDS: PATIENT'S OWN MEDICATION (NON-FORMULARY) (Pravastatin Sodium 40 MG) PO SCH (21:49)
[2017-01-29] MEDS: THIAMINE HCL 100 MG TABLET (FP) PO SCH (21:50)
[2017-01-30] MEDS ORDERED: PT OWN MED DRAWER 7, Y5N ONE (08:55)
[2017-01-30] MEDS: PRENATAL VITAMINS W/ FOLIC ACID TABLET (FP) PO SCH (10:00)
[2017-01-30] MEDS: CITALOPRAM HYDROBROMIDE 10 MG TABLET (FP) PO SCH (10:00)
[2017-01-30] MEDS: amLODIPine BESYLATE 10 MG TABLET (FP) PO SCH (10:00)
[2017-01-30] MEDS: NICOTINE 14 MG/24 HOURS TOPICAL PATCH TD SCH (10:01)
[2017-01-30] MEDS: VITAMINS A AND D TOPICAL OINTMENT 60 GM TUBE TP SCH ×3 (10:01→23:45)
[2017-01-30] MEDS: THIAMINE HCL 100 MG TABLET (FP) PO SCH (21:43)
[2017-01-30] MEDS: IBUPROFEN 400 MG TABLET (FP) PO PRN (21:45)
[2017-01-30] MEDS: PATIENT'S OWN MEDICATION (NON-FORMULARY) (Pravastatin Sodium 40 MG) PO SCH (22:15)
[2017-01-31 07:20] VITALS: TEMP 98.3
[2017-01-31] MEDS ORDERED: PT OWN MED DRAWER 7, Y5N ONE (08:46)
[2017-01-31] MEDS: PRENATAL VITAMINS W/ FOLIC ACID TABLET (FP) PO SCH (10:14)
[2017-01-31] MEDS: CITALOPRAM HYDROBROMIDE 10 MG TABLET (FP) PO SCH (10:14)
[2017-01-31] MEDS: amLODIPine BESYLATE 10 MG TABLET (FP) PO SCH (10:14)
[2017-01-31] MEDS: VITAMINS A AND D TOPICAL OINTMENT 60 GM TUBE TP SCH ×2 (10:15→21:50)
[2017-01-31] MEDS: NICOTINE 14 MG/24 HOURS TOPICAL PATCH TD SCH (10:16)
[2017-01-31] MEDS: PATIENT'S OWN MEDICATION (NON-FORMULARY) (Pravastatin Sodium 40 MG) PO SCH (21:50)
[2017-01-31] MEDS: THIAMINE HCL 100 MG TABLET (FP) PO SCH (21:50)
--- NOTE | 2017-02-01 09:04 | PN ---
Psychiatric Progress Note Vital Signs: Vital Signs Period Temp Pulse Resp BP Sys/Kaufman Pulse Ox Last 24 Hr 98.3 F 74-77 16-18 133-137/83-85 Date of Session: 02/01/17 Chief Complaint:: Disharge visit HPI: Patient addressed Alcohol dependence ,Cocaine dependence comorbid with Substance induced mood disorder. ROS: Significant for DM,HTN,obesity. Current Medications: Active Medications Generic Name Dose Route Start Last Admin Trade Name Freq PRN Reason Stop Dose Admin Acetaminophen 650 mg 01/11/17 12:50 Tylenol - PO Q4H PRN PAIN Al Hydroxide/Mg Hydroxide 30 ml 01/11/17 12:50 Mylanta Oral Suspension - PO Q6H PRN DYSPEPSIA Amlodipine Besylate 10 mg 01/11/17 15:34 01/31/17 10:14 Norvasc - PO 10 mg DAILY ESTRADA Administration Citalopram Hydrobromide 30 mg 01/15/17 10:00 01/31/17 10:14 Celexa - PO 30 mg DAILY ESTRADA Administration Diphenhydramine HCl 50 mg 01/11/17 12:50 Benadryl - PO HSMR1 PRN INSOMNIA Eucalyptus/Menthol/Phenol/Sorbitol 1 each 01/11/17 12:50 Cepastat Lozenge - MM Q4H PRN SORE THROAT Guaifenesin 10 ml 01/11/17 12:50 Robitussin Dm - PO Q6H PRN COUGH Ibuprofen 400 mg 01/11/17 12:50 01/30/17 21:45 Motrin - PO 400 mg Q6H PRN Administration SEVERE PAIN Loperamide HCl 4 mg 01/11/17 12:50 Imodium - PO Q6H PRN DIARRHEA Magnesium Citrate 300 ml 01/11/17 12:50 Citroma - PO Q48H PRN CONSTIPATION Magnesium Hydroxide 30 ml 01/11/17 12:50 Milk Of Magnesia - PO DAILY PRN CONSTIPATION Nicotine 14 mg 01/11/17 15:34 01/31/17 10:16 Nicoderm Patch - TD Not Given DAILY ESTRADA Nicotine Polacrilex 2 mg 01/11/17 12:50 01/21/17 10:36 Nicorette Gum - BUC 2 mg Q2H PRN Administration NICOTINE REPLACEMENT RX Non-Formulary Medication 1 each 01/11/17 16:30 01/31/17 10:14 Abacavir/Dolutegravir/Lamivudi [Triumeq Tablet] PO 1 each DAILY ESTRADA Administration Non-Formulary Medication 40 mg 01/11/17 22:00 01/31/17 21:50 Pravastatin Sodium PO 40 mg HS ESTRADA Administration Multivit/Folic Acid/Iron 1 tab 01/12/17 10:00 01/31/17 10:14 Vitamins (Sjr) - PO 1 tab DAILY ESTRADA Administration Pseudoephedrine/Triprolidine 1 combo 01/11/17 12:50 Actifed - PO TID PRN NASAL CONGESTION Thiamine HCl 100 mg 01/11/17 22:00 01/31/17 21:50 Vitamin B1 - PO 100 mg HS ESTRADA Administration Vitamin A/Vitamin D 1 applic 01/12/17 11:15 01/31/17 21:50 Vitamin A & D Top Oint - TP Not Given BID ESTRADA Current Side Effect: No Lab tests ordered: No Lab tests reviewed: Yes Provider note:: Patient completed this program today.She has met her treatment goals and will continue to address her issues on outpatient basis at [facility] in the [place].Patient continues to find that Seroquel 100 mg po hs and Trazodone 100 mg po hs help to reduce her anxiety,sleeping difficulties,mood instability. Supportive therapy provided including utliization of coping skills,support system to maintain recovery. PAtient is stable for discharge today. Total face to face time:: 30 Mental Status Exam - Mental Status Exam Alert and Oriented to: Time, Place, Person Cognitive Function: Grossly Intact Patient Appearance: Well Groomed Mood: Euthymic Affect: Mood Congruent Patient Behavior: Cooperative Speech Pattern: Clear Voice Loudness: Normal Thought Process: Goal Oriented Thought Disorder: Not Present Hallucinations: Denies Suicidal Ideation: Denies Homicidal Ideation: Denies Insight/Judgement: Fair Sleep: Fair Appetite: Good Muscle strength/Tone: Normal Gait/Station: Normal Psychiatric Treatment Plan - Problem List (1) Nicotine dependence Current Visit: Yes Qualifiers: Nicotine product type: cigarettes Substance use status: in withdrawal Qualified Code(s): F17.213 - Nicotine dependence, cigarettes, with withdrawal (2) Alcohol dependence with uncomplicated withdrawal Current Visit: Yes (3) Cocaine dependence, uncomplicated Current Visit: Yes (4) HTN (hypertension) Current Visit: Yes Qualifiers: Hypertension type: essential hypertension Qualified Code(s): I10 - Essential (primary) hypertension (5) Obesity (BMI 30.0-34.9) Current Visit: Yes (6) Drug-induced mood disorder Current Visit: No (7) Diabetes mellitus type 2, diet-controlled Current Visit: Yes Comment: sidney 135
[2017-02-01 09:49] VITALS: BP 139/82; PULSE 79
[2017-02-01] MEDS: PRENATAL VITAMINS W/ FOLIC ACID TABLET (FP) PO SCH (10:03)
[2017-02-01] MEDS: CITALOPRAM HYDROBROMIDE 10 MG TABLET (FP) PO SCH (10:03)
[2017-02-01] MEDS: NICOTINE 14 MG/24 HOURS TOPICAL PATCH TD SCH (10:04)
[2017-02-01] MEDS: amLODIPine BESYLATE 10 MG TABLET (FP) PO SCH (10:04)
[2017-02-01] MEDS: VITAMINS A AND D TOPICAL OINTMENT 60 GM TUBE TP SCH (10:05)
== END 2017-02-01 10:15 | disposition home or self-care (01) | DRG 772 ==
LOC: YASAS 08:19 → Y3E 15:27
PROVIDERS: ADMIT Psychiatry & Neurology Psychiatry; ATTEND Psychiatry & Neurology Psychiatry
PROC: HZ42ZZZ Group Counseling for Substance Abuse Treatment, Cognitive-Behavioral (ICD-10-PCS; principal; 2017-01-11)
DX: F10.20 Alcohol dependence, uncomplicated (principal); F14.20 Cocaine dependence, uncomplicated; F17.213 Nicotine dependence, cigarettes, with withdrawal; F19.24 Other psychoactive substance dependence with psychoactive substance-induced mood disorder; I10 Essential (primary) hypertension; E11.9 Type 2 diabetes mellitus without complications; E66.9 Obesity, unspecified; Z68.31 Body mass index [BMI] 31.0-31.9, adult; Z21 Asymptomatic human immunodeficiency virus [HIV] infection status; Z87.42 Personal history of other diseases of the female genital tract
CPT/HCPCS: 36415; 80053; 81003; 81015; 85027; 86593; 86780; 93005; 93010

== ENCOUNTER 2023-03-25 15:00 | Inpatient (IN) | payer OTHER ==
[2023-03-25 17:37] VITALS: BMI 29.7
[2023-03-25] MEDS ORDERED: NICOTINE POLACRILEX 2 MG GUM BUC PRN (19:42)
[2023-03-25] MEDS ORDERED: ACETAMINOPHEN 325 MG TABLET (FP) PO PRN (19:42)
[2023-03-25] MEDS ORDERED: BENZONATATE 200 MG CAPSULE PO PRN (19:42)
[2023-03-25] MEDS ORDERED: COLLOIDAL OATMEAL 1 BAR EACH TP PRN (19:42)
[2023-03-25] MEDS ORDERED: NALOXONE HCL (KLOXXADO) 8 MG SPRAY NS PRN (19:42)
[2023-03-25] MEDS ORDERED: IBUPROFEN 600 MG TABLET (FP) PO PRN (19:42)
[2023-03-25] MEDS ORDERED: TUBERCULIN PPD 5 TU/0.1ML SYRINGE (IN PATIENT USE ONLY) ID ONE (19:42)
[2023-03-25] MEDS ORDERED: LOPERAMIDE HCL 2 MG CAPSULE PO PRN (19:42)
[2023-03-25] MEDS ORDERED: NALOXONE HCL 0.4 MG/ML VIAL IM PRN (19:42)
[2023-03-25] MEDS ORDERED: hydrOXYzine PAMOATE 25 MG CAPSULE (FP) PO PRN (19:42)
[2023-03-25] MEDS ORDERED: IBUPROFEN 400 MG TABLET (FP) PO PRN (19:42)
[2023-03-25] MEDS ORDERED: POLYETHYLENE GLYCOL (HEALTHYLAX) 3350 17 GM PACKET PO PRN (19:42)
[2023-03-25] MEDS ORDERED: BENZOCAINE/MENTHOL (CHLORASEPTIC ) LOZENGE MM PRN (19:42)
[2023-03-25] MEDS ORDERED: MAG HYDROX/AL HYDROX/SIMETH 30 ML UNIT-DOSE CUP PO PRN (19:42)
[2023-03-25] MEDS ORDERED: guaiFENesin 600 MG TABLET.ER (FP) PO PRN (19:42)
[2023-03-25] MEDS ORDERED: MAGNESIUM HYDROX 2400MG/30ML ORAL SUSPENSION 30 ML CUP PO PRN (19:42)
[2023-03-25] MEDS ORDERED: AMMONIUM LACTATE 12% LOTION 225 GM BOTTLE TP PRN (19:42)
[2023-03-25] MEDS ORDERED: cloNIDine HCL 0.1 MG TABLET PO PRN (19:49)
[2023-03-25] MEDS: THIAMINE HCL 100 MG TABLET (FP) PO SCH (22:55)
[2023-03-25] MEDS: BACITRACIN 0.9 GM PACKET TP SCH (22:55)
[2023-03-25] MEDS: MELATONIN 5 MG TABLETS PO SCH (22:55)
[2023-03-25] MEDS: INSULIN SLIDING SCALE (NOVOLOG) 1 VIAL SQ SCH (22:59)
[2023-03-25] MEDS: CEPHALEXIN MONOHYDRATE 500 MG CAPSULE (UD) PO SCH (23:00)
[2023-03-26] MEDS: CEPHALEXIN MONOHYDRATE 500 MG CAPSULE (UD) PO SCH ×3 (08:08→17:25)
[2023-03-26] MEDS ORDERED: INSULIN (NOVOLOG) ASPART 100 UNITS/ML 10ML VIAL ONE (08:14)
[2023-03-26] MEDS: INSULIN SLIDING SCALE (NOVOLOG) 1 VIAL SQ SCH ×4 (08:15→21:22)
[2023-03-26] MEDS: PRENATAL VITAMINS W/ FOLIC ACID TABLET (FP) PO SCH (09:45)
[2023-03-26] MEDS: BACITRACIN 0.9 GM PACKET TP SCH (09:45)
[2023-03-26] MEDS: amLODIPine BESYLATE 10 MG TABLET (FP) PO SCH (09:45)
[2023-03-26] MEDS: NICOTINE 14 MG/24 HOURS TOPICAL PATCH TD SCH (09:46)
[2023-03-26] MEDS ORDERED: ESCITALOPRAM OXALATE 20 MG TABLET PO SCH (10:15)
[2023-03-26] MEDS: ARIPiprazole 5 MG TABLET PO SCH (12:15)
[2023-03-26] MEDS: ESCITALOPRAM OXALATE 20 MG TABLET PO SCH (12:15)
[2023-03-26 15:22] LABS: ALBUMIN 2.8 g/dl (3.4-5.0); HEMATOCRIT 37.5 % (32.4-45.2); HEMOGLOBIN 12.6 GM/dL (10.7-15.3); MCH 31.3 pg (25.7-33.7); MCHC 33.5 g/dl (32.0-36.0); MEAN CELL VOLUME 93.6 fl (80-96); MEAN PLT VOLUME 8.1 fl (7.5-11.1); PLATELET COUNT 262 10^3/uL (134-434); RDW 15.7 % (11.6-15.6); WHITE BLOOD COUNT 6.1 K/mm3 (4.0-10.0)
[2023-03-26 15:24] LABS: CALCIUM 8.6 mg/dL (8.5-10.1)
[2023-03-26 15:27] LABS: BILIRUBIN,TOTAL 0.3 mg/dL (0.2-1); BLOOD UREA NITROGEN 12.6 mg/dL (7-18); TOT PROT 6.4 g/dl (6.4-8.2)
[2023-03-26 15:30] LABS: PH,URINE 5.5 (5.0-8.0); URINE APPEARANCE CLEAR; URINE BILIRUBIN NEGATIVE (NEGATIVE); URINE COLOR YELLOW; URINE GLUCOSE (UA) NEGATIVE (NEGATIVE); URINE KETONE NEGATIVE (NEGATIVE); URINE LEUK ESTERASE NEGATIVE (NEGATIVE); URINE NITRITE NEGATIVE (NEGATIVE); URINE PROTEIN TRACE (NEGATIVE); URINE UROBILINOGEN 0.2 mg/dL (0.2-1.0)
[2023-03-26] MEDS: metFORMIN HCL 500 MG TABLET (FP) PO SCH (16:51)
[2023-03-26 17:14] LABS: SYPHILIS W/ RPR CONF REACTIVE (NONREACTIVE)
[2023-03-26] MEDS: MELATONIN 5 MG TABLETS PO SCH (21:22)
[2023-03-26] MEDS: THIAMINE HCL 100 MG TABLET (FP) PO SCH (21:22)
[2023-03-26] MEDS: ATORVASTATIN CA 40 MG TABLET (FP) PO SCH (21:22)
[2023-03-27] MEDS: CEPHALEXIN MONOHYDRATE 500 MG CAPSULE (UD) PO SCH ×4 (01:56→17:08)
[2023-03-27] MEDS: INSULIN SLIDING SCALE (NOVOLOG) 1 VIAL SQ SCH ×4 (06:39→22:02)
[2023-03-27] MEDS: metFORMIN HCL 500 MG TABLET (FP) PO SCH ×2 (06:40→17:08)
[2023-03-27] MEDS: PRENATAL VITAMINS W/ FOLIC ACID TABLET (FP) PO SCH (10:20)
[2023-03-27] MEDS: BACITRACIN 0.9 GM PACKET TP SCH (10:21)
[2023-03-27] MEDS: ESCITALOPRAM OXALATE 20 MG TABLET PO SCH (10:21)
[2023-03-27] MEDS: amLODIPine BESYLATE 10 MG TABLET (FP) PO SCH (10:21)
[2023-03-27] MEDS: ARIPiprazole 5 MG TABLET PO SCH (10:21)
[2023-03-27] MEDS: NICOTINE 14 MG/24 HOURS TOPICAL PATCH TD SCH (10:21)
[2023-03-27] MEDS: ASPIRIN 81 MG CHEWABLE TABLETS PO SCH (15:06)
[2023-03-27] MEDS: ABACAVIR/DOLUTEGRAVIR/LAMIVUDI (TRIUMEQ) TABLET PO SCH (15:06)
[2023-03-27] MEDS: ATORVASTATIN CA 40 MG TABLET (FP) PO SCH (21:37)
[2023-03-27] MEDS: MELATONIN 5 MG TABLETS PO SCH (21:37)
[2023-03-27] MEDS: THIAMINE HCL 100 MG TABLET (FP) PO SCH (21:37)
[2023-03-28] MEDS: CEPHALEXIN MONOHYDRATE 500 MG CAPSULE (UD) PO SCH ×5 (01:30→23:06)
[2023-03-28] MEDS: INSULIN SLIDING SCALE (NOVOLOG) 1 VIAL SQ SCH ×4 (06:37→21:33)
[2023-03-28] MEDS: metFORMIN HCL 500 MG TABLET (FP) PO SCH ×2 (06:57→16:59)
[2023-03-28] MEDS: PRENATAL VITAMINS W/ FOLIC ACID TABLET (FP) PO SCH (09:58)
[2023-03-28] MEDS: amLODIPine BESYLATE 10 MG TABLET (FP) PO SCH (09:59)
[2023-03-28] MEDS: BACITRACIN 0.9 GM PACKET TP SCH (09:59)
[2023-03-28] MEDS: ABACAVIR/DOLUTEGRAVIR/LAMIVUDI (TRIUMEQ) TABLET PO SCH (09:59)
[2023-03-28] MEDS: ARIPiprazole 5 MG TABLET PO SCH (09:59)
[2023-03-28] MEDS: ASPIRIN 81 MG CHEWABLE TABLETS PO SCH (09:59)
[2023-03-28] MEDS: LOSARTAN POTASSIUM 50 MG TABLET PO SCH (09:59)
[2023-03-28] MEDS: ESCITALOPRAM OXALATE 20 MG TABLET PO SCH (09:59)
[2023-03-28] MEDS: NICOTINE 14 MG/24 HOURS TOPICAL PATCH TD SCH (09:59)
[2023-03-28] MEDS: MELATONIN 5 MG TABLETS PO SCH (21:33)
[2023-03-28] MEDS: ATORVASTATIN CA 40 MG TABLET (FP) PO SCH (21:33)
[2023-03-28] MEDS: THIAMINE HCL 100 MG TABLET (FP) PO SCH (21:34)
[2023-03-29] MEDS: metFORMIN HCL 500 MG TABLET (FP) PO SCH ×2 (06:53→17:37)
[2023-03-29] MEDS: CEPHALEXIN MONOHYDRATE 500 MG CAPSULE (UD) PO SCH ×4 (06:53→23:59)
[2023-03-29] MEDS: INSULIN SLIDING SCALE (NOVOLOG) 1 VIAL SQ SCH (06:54)
[2023-03-29] MEDS: ESCITALOPRAM OXALATE 20 MG TABLET PO SCH (09:48)
[2023-03-29] MEDS: ASPIRIN 81 MG CHEWABLE TABLETS PO SCH (09:48)
[2023-03-29] MEDS: LOSARTAN POTASSIUM 50 MG TABLET PO SCH (09:49)
[2023-03-29] MEDS: amLODIPine BESYLATE 10 MG TABLET (FP) PO SCH (09:49)
[2023-03-29] MEDS: BACITRACIN 0.9 GM PACKET TP SCH (09:49)
[2023-03-29] MEDS: ARIPiprazole 5 MG TABLET PO SCH (09:49)
[2023-03-29] MEDS: ABACAVIR/DOLUTEGRAVIR/LAMIVUDI (TRIUMEQ) TABLET PO SCH (09:50)
[2023-03-29] MEDS: NICOTINE 14 MG/24 HOURS TOPICAL PATCH TD SCH (09:50)
[2023-03-29] MEDS: PRENATAL VITAMINS W/ FOLIC ACID TABLET (FP) PO SCH (09:50)
[2023-03-29] MEDS: MELATONIN 5 MG TABLETS PO SCH (21:44)
[2023-03-29] MEDS: THIAMINE HCL 100 MG TABLET (FP) PO SCH (21:45)
[2023-03-29] MEDS: ATORVASTATIN CA 40 MG TABLET (FP) PO SCH (21:45)
[2023-03-30] MEDS: metFORMIN HCL 500 MG TABLET (FP) PO SCH ×2 (06:44→16:59)
[2023-03-30] MEDS: CEPHALEXIN MONOHYDRATE 500 MG CAPSULE (UD) PO SCH ×3 (06:44→17:01)
[2023-03-30] MEDS: ASPIRIN 81 MG CHEWABLE TABLETS PO SCH (09:46)
[2023-03-30] MEDS: LOSARTAN POTASSIUM 50 MG TABLET PO SCH (09:46)
[2023-03-30] MEDS: ARIPiprazole 5 MG TABLET PO SCH (09:46)
[2023-03-30] MEDS: BACITRACIN 0.9 GM PACKET TP SCH (09:46)
[2023-03-30] MEDS: ESCITALOPRAM OXALATE 20 MG TABLET PO SCH (09:47)
[2023-03-30] MEDS: amLODIPine BESYLATE 10 MG TABLET (FP) PO SCH (09:47)
[2023-03-30] MEDS: NICOTINE 14 MG/24 HOURS TOPICAL PATCH TD SCH (09:47)
[2023-03-30] MEDS: PRENATAL VITAMINS W/ FOLIC ACID TABLET (FP) PO SCH (09:47)
[2023-03-30] MEDS: ABACAVIR/DOLUTEGRAVIR/LAMIVUDI (TRIUMEQ) TABLET PO SCH (09:50)
[2023-03-30] MEDS: MELATONIN 5 MG TABLETS PO SCH (21:38)
[2023-03-30] MEDS: THIAMINE HCL 100 MG TABLET (FP) PO SCH (21:38)
[2023-03-30] MEDS: ATORVASTATIN CA 40 MG TABLET (FP) PO SCH (21:38)
[2023-03-31] MEDS: CEPHALEXIN MONOHYDRATE 500 MG CAPSULE (UD) PO SCH ×4 (00:06→17:39)
[2023-03-31] MEDS: metFORMIN HCL 500 MG TABLET (FP) PO SCH ×2 (06:34→17:38)
[2023-03-31] MEDS: ASPIRIN 81 MG CHEWABLE TABLETS PO SCH (09:58)
[2023-03-31] MEDS: PRENATAL VITAMINS W/ FOLIC ACID TABLET (FP) PO SCH (09:58)
[2023-03-31] MEDS: ESCITALOPRAM OXALATE 20 MG TABLET PO SCH (09:58)
[2023-03-31] MEDS: ARIPiprazole 5 MG TABLET PO SCH (09:58)
[2023-03-31] MEDS: amLODIPine BESYLATE 10 MG TABLET (FP) PO SCH (09:59)
[2023-03-31] MEDS: NICOTINE 14 MG/24 HOURS TOPICAL PATCH TD SCH (09:59)
[2023-03-31] MEDS: BACITRACIN 0.9 GM PACKET TP SCH (10:01)
[2023-03-31] MEDS: ABACAVIR/DOLUTEGRAVIR/LAMIVUDI (TRIUMEQ) TABLET PO SCH (10:01)
[2023-03-31] MEDS: LOSARTAN POTASSIUM 50 MG TABLET PO SCH (10:02)
[2023-03-31] MEDS ORDERED: CEPHALEXIN MONOHYDRATE 500 MG CAPSULE (UD) PO SCH ×2 (14:00→18:00)
[2023-03-31] MEDS: ATORVASTATIN CA 40 MG TABLET (FP) PO SCH (21:24)
[2023-03-31] MEDS: THIAMINE HCL 100 MG TABLET (FP) PO SCH (21:24)
[2023-03-31] MEDS: MELATONIN 5 MG TABLETS PO SCH (21:24)
[2023-04-01] MEDS: CEPHALEXIN MONOHYDRATE 500 MG CAPSULE (UD) PO SCH ×4 (00:10→17:02)
[2023-04-01] MEDS: metFORMIN HCL 500 MG TABLET (FP) PO SCH ×2 (08:03→16:37)
[2023-04-01] MEDS: PRENATAL VITAMINS W/ FOLIC ACID TABLET (FP) PO SCH (09:46)
[2023-04-01] MEDS: LOSARTAN POTASSIUM 50 MG TABLET PO SCH (09:46)
[2023-04-01] MEDS: ESCITALOPRAM OXALATE 20 MG TABLET PO SCH (09:47)
[2023-04-01] MEDS: ARIPiprazole 5 MG TABLET PO SCH (09:47)
[2023-04-01] MEDS: ASPIRIN 81 MG CHEWABLE TABLETS PO SCH (09:47)
[2023-04-01] MEDS: amLODIPine BESYLATE 10 MG TABLET (FP) PO SCH (09:47)
[2023-04-01] MEDS: BACITRACIN 0.9 GM PACKET TP SCH (09:48)
[2023-04-01] MEDS: ABACAVIR/DOLUTEGRAVIR/LAMIVUDI (TRIUMEQ) TABLET PO SCH (09:49)
[2023-04-01] MEDS: NICOTINE 14 MG/24 HOURS TOPICAL PATCH TD SCH (09:49)
[2023-04-01] MEDS: THIAMINE HCL 100 MG TABLET (FP) PO SCH (21:32)
[2023-04-01] MEDS: MELATONIN 5 MG TABLETS PO SCH (21:32)
[2023-04-01] MEDS: ATORVASTATIN CA 40 MG TABLET (FP) PO SCH (21:33)
[2023-04-02] MEDS: CEPHALEXIN MONOHYDRATE 500 MG CAPSULE (UD) PO SCH ×4 (00:01→17:11)
[2023-04-02] MEDS: metFORMIN HCL 500 MG TABLET (FP) PO SCH ×2 (06:43→16:34)
[2023-04-02] MEDS: ASPIRIN 81 MG CHEWABLE TABLETS PO SCH (09:57)
[2023-04-02] MEDS: NICOTINE 14 MG/24 HOURS TOPICAL PATCH TD SCH (09:58)
[2023-04-02] MEDS: BACITRACIN 0.9 GM PACKET TP SCH (09:58)
[2023-04-02] MEDS: LOSARTAN POTASSIUM 50 MG TABLET PO SCH (09:58)
[2023-04-02] MEDS: ARIPiprazole 5 MG TABLET PO SCH (09:58)
[2023-04-02] MEDS: ESCITALOPRAM OXALATE 20 MG TABLET PO SCH (09:58)
[2023-04-02] MEDS: amLODIPine BESYLATE 10 MG TABLET (FP) PO SCH (09:58)
[2023-04-02] MEDS: PRENATAL VITAMINS W/ FOLIC ACID TABLET (FP) PO SCH (09:59)
[2023-04-02] MEDS: ABACAVIR/DOLUTEGRAVIR/LAMIVUDI (TRIUMEQ) TABLET PO SCH (10:36)
[2023-04-02] MEDS: ATORVASTATIN CA 40 MG TABLET (FP) PO SCH (21:30)
[2023-04-02] MEDS: THIAMINE HCL 100 MG TABLET (FP) PO SCH (21:30)
[2023-04-02] MEDS: MELATONIN 5 MG TABLETS PO SCH (21:30)
[2023-04-03] MEDS: CEPHALEXIN MONOHYDRATE 500 MG CAPSULE (UD) PO SCH ×4 (00:15→17:46)
[2023-04-03] MEDS: metFORMIN HCL 500 MG TABLET (FP) PO SCH ×2 (08:07→16:36)
[2023-04-03] MEDS: amLODIPine BESYLATE 10 MG TABLET (FP) PO SCH (09:47)
[2023-04-03] MEDS: ESCITALOPRAM OXALATE 20 MG TABLET PO SCH (09:47)
[2023-04-03] MEDS: BACITRACIN 0.9 GM PACKET TP SCH (09:47)
[2023-04-03] MEDS: ASPIRIN 81 MG CHEWABLE TABLETS PO SCH (09:47)
[2023-04-03] MEDS: ABACAVIR/DOLUTEGRAVIR/LAMIVUDI (TRIUMEQ) TABLET PO SCH (09:47)
[2023-04-03] MEDS: LOSARTAN POTASSIUM 50 MG TABLET PO SCH (09:47)
[2023-04-03] MEDS: ARIPiprazole 5 MG TABLET PO SCH (09:48)
[2023-04-03] MEDS: PRENATAL VITAMINS W/ FOLIC ACID TABLET (FP) PO SCH (09:48)
[2023-04-03] MEDS: NICOTINE 14 MG/24 HOURS TOPICAL PATCH TD SCH (10:02)
[2023-04-03] MEDS: MELATONIN 5 MG TABLETS PO SCH (21:37)
[2023-04-03] MEDS: THIAMINE HCL 100 MG TABLET (FP) PO SCH (21:37)
[2023-04-03] MEDS: ATORVASTATIN CA 40 MG TABLET (FP) PO SCH (21:37)
[2023-04-04] MEDS: CEPHALEXIN MONOHYDRATE 500 MG CAPSULE (UD) PO SCH ×4 (00:20→17:53)
[2023-04-04] MEDS: metFORMIN HCL 500 MG TABLET (FP) PO SCH ×2 (07:56→16:37)
[2023-04-04] MEDS: amLODIPine BESYLATE 10 MG TABLET (FP) PO SCH (09:48)
[2023-04-04] MEDS: ASPIRIN 81 MG CHEWABLE TABLETS PO SCH (09:48)
[2023-04-04] MEDS: BACITRACIN 0.9 GM PACKET TP SCH (09:48)
[2023-04-04] MEDS: ARIPiprazole 5 MG TABLET PO SCH (09:48)
[2023-04-04] MEDS: LOSARTAN POTASSIUM 50 MG TABLET PO SCH (09:48)
[2023-04-04] MEDS: PRENATAL VITAMINS W/ FOLIC ACID TABLET (FP) PO SCH (09:49)
[2023-04-04] MEDS: ESCITALOPRAM OXALATE 20 MG TABLET PO SCH (09:49)
[2023-04-04] MEDS: ABACAVIR/DOLUTEGRAVIR/LAMIVUDI (TRIUMEQ) TABLET PO SCH (10:07)
[2023-04-04] MEDS: NICOTINE 14 MG/24 HOURS TOPICAL PATCH TD SCH (10:07)
[2023-04-04] MEDS: ATORVASTATIN CA 40 MG TABLET (FP) PO SCH (21:30)
[2023-04-04] MEDS: MELATONIN 5 MG TABLETS PO SCH (21:30)
[2023-04-04] MEDS: THIAMINE HCL 100 MG TABLET (FP) PO SCH (21:30)
[2023-04-05] MEDS: CEPHALEXIN MONOHYDRATE 500 MG CAPSULE (UD) PO SCH ×4 (00:03→17:28)
[2023-04-05] MEDS: metFORMIN HCL 500 MG TABLET (FP) PO SCH ×2 (07:54→17:28)
[2023-04-05] MEDS: LOSARTAN POTASSIUM 50 MG TABLET PO SCH (09:42)
[2023-04-05] MEDS: BACITRACIN 0.9 GM PACKET TP SCH (09:42)
[2023-04-05] MEDS: ESCITALOPRAM OXALATE 20 MG TABLET PO SCH (09:42)
[2023-04-05] MEDS: ARIPiprazole 5 MG TABLET PO SCH (09:42)
[2023-04-05] MEDS: ASPIRIN 81 MG CHEWABLE TABLETS PO SCH (09:42)
[2023-04-05] MEDS: NICOTINE 14 MG/24 HOURS TOPICAL PATCH TD SCH (09:43)
[2023-04-05] MEDS: amLODIPine BESYLATE 10 MG TABLET (FP) PO SCH (09:43)
[2023-04-05] MEDS: ABACAVIR/DOLUTEGRAVIR/LAMIVUDI (TRIUMEQ) TABLET PO SCH (09:43)
[2023-04-05] MEDS: PRENATAL VITAMINS W/ FOLIC ACID TABLET (FP) PO SCH (09:43)
[2023-04-05] MEDS: MELATONIN 5 MG TABLETS PO SCH (21:37)
[2023-04-05] MEDS: THIAMINE HCL 100 MG TABLET (FP) PO SCH (21:38)
[2023-04-05] MEDS: ATORVASTATIN CA 40 MG TABLET (FP) PO SCH (21:38)
[2023-04-06] MEDS: CEPHALEXIN MONOHYDRATE 500 MG CAPSULE (UD) PO SCH ×5 (00:17→17:26)
[2023-04-06] MEDS: metFORMIN HCL 500 MG TABLET (FP) PO SCH ×2 (07:56→17:26)
[2023-04-06] MEDS: ASPIRIN 81 MG CHEWABLE TABLETS PO SCH (09:30)
[2023-04-06] MEDS: BACITRACIN 0.9 GM PACKET TP SCH (09:30)
[2023-04-06] MEDS: amLODIPine BESYLATE 10 MG TABLET (FP) PO SCH (09:30)
[2023-04-06] MEDS: ABACAVIR/DOLUTEGRAVIR/LAMIVUDI (TRIUMEQ) TABLET PO SCH (09:30)
[2023-04-06] MEDS: ESCITALOPRAM OXALATE 20 MG TABLET PO SCH (09:31)
[2023-04-06] MEDS: ARIPiprazole 5 MG TABLET PO SCH (09:31)
[2023-04-06] MEDS: PRENATAL VITAMINS W/ FOLIC ACID TABLET (FP) PO SCH (09:31)
[2023-04-06] MEDS: LOSARTAN POTASSIUM 50 MG TABLET PO SCH (09:31)
[2023-04-06] MEDS: NICOTINE 14 MG/24 HOURS TOPICAL PATCH TD SCH (09:32)
[2023-04-06] MEDS: THIAMINE HCL 100 MG TABLET (FP) PO SCH (21:30)
[2023-04-06] MEDS: ATORVASTATIN CA 40 MG TABLET (FP) PO SCH (21:30)
[2023-04-06] MEDS: MELATONIN 5 MG TABLETS PO SCH (21:31)
[2023-04-07] MEDS: CEPHALEXIN MONOHYDRATE 500 MG CAPSULE (UD) PO SCH ×4 (00:12→17:14)
[2023-04-07] MEDS: metFORMIN HCL 500 MG TABLET (FP) PO SCH ×2 (07:55→17:14)
[2023-04-07] MEDS: ESCITALOPRAM OXALATE 20 MG TABLET PO SCH (09:42)
[2023-04-07] MEDS: PRENATAL VITAMINS W/ FOLIC ACID TABLET (FP) PO SCH (09:42)
[2023-04-07] MEDS: LOSARTAN POTASSIUM 50 MG TABLET PO SCH (09:42)
[2023-04-07] MEDS: ARIPiprazole 5 MG TABLET PO SCH (09:42)
[2023-04-07] MEDS: amLODIPine BESYLATE 10 MG TABLET (FP) PO SCH (09:43)
[2023-04-07] MEDS: ASPIRIN 81 MG CHEWABLE TABLETS PO SCH (09:43)
[2023-04-07] MEDS: BACITRACIN 0.9 GM PACKET TP SCH (09:43)
[2023-04-07] MEDS: ABACAVIR/DOLUTEGRAVIR/LAMIVUDI (TRIUMEQ) TABLET PO SCH (09:45)
[2023-04-07] MEDS: NICOTINE 14 MG/24 HOURS TOPICAL PATCH TD SCH (09:51)
[2023-04-07] MEDS: ATORVASTATIN CA 40 MG TABLET (FP) PO SCH (21:19)
[2023-04-07] MEDS: THIAMINE HCL 100 MG TABLET (FP) PO SCH (21:20)
[2023-04-07] MEDS: MELATONIN 5 MG TABLETS PO SCH (21:20)
[2023-04-08] MEDS: CEPHALEXIN MONOHYDRATE 500 MG CAPSULE (UD) PO SCH ×4 (00:04→17:29)
[2023-04-08] MEDS: metFORMIN HCL 500 MG TABLET (FP) PO SCH ×2 (07:57→17:29)
[2023-04-08] MEDS: ASPIRIN 81 MG CHEWABLE TABLETS PO SCH (09:58)
[2023-04-08] MEDS: ESCITALOPRAM OXALATE 20 MG TABLET PO SCH (09:58)
[2023-04-08] MEDS: LOSARTAN POTASSIUM 50 MG TABLET PO SCH (09:58)
[2023-04-08] MEDS: ABACAVIR/DOLUTEGRAVIR/LAMIVUDI (TRIUMEQ) TABLET PO SCH (09:58)
[2023-04-08] MEDS: BACITRACIN 0.9 GM PACKET TP SCH (09:59)
[2023-04-08] MEDS: PRENATAL VITAMINS W/ FOLIC ACID TABLET (FP) PO SCH (09:59)
[2023-04-08] MEDS: ARIPiprazole 5 MG TABLET PO SCH (09:59)
[2023-04-08] MEDS: amLODIPine BESYLATE 10 MG TABLET (FP) PO SCH (09:59)
[2023-04-08] MEDS: NICOTINE 14 MG/24 HOURS TOPICAL PATCH TD SCH (10:00)
[2023-04-08] MEDS: ATORVASTATIN CA 40 MG TABLET (FP) PO SCH (21:41)
[2023-04-08] MEDS: THIAMINE HCL 100 MG TABLET (FP) PO SCH (21:41)
[2023-04-08] MEDS: MELATONIN 5 MG TABLETS PO SCH (21:53)
[2023-04-09] MEDS: CEPHALEXIN MONOHYDRATE 500 MG CAPSULE (UD) PO SCH ×4 (01:20→17:15)
[2023-04-09] MEDS: metFORMIN HCL 500 MG TABLET (FP) PO SCH ×2 (08:08→17:15)
[2023-04-09] MEDS: LOSARTAN POTASSIUM 50 MG TABLET PO SCH (09:31)
[2023-04-09] MEDS: amLODIPine BESYLATE 10 MG TABLET (FP) PO SCH (09:31)
[2023-04-09] MEDS: ARIPiprazole 5 MG TABLET PO SCH (09:31)
[2023-04-09] MEDS: ABACAVIR/DOLUTEGRAVIR/LAMIVUDI (TRIUMEQ) TABLET PO SCH ×2 (09:31→09:34)
[2023-04-09] MEDS: ESCITALOPRAM OXALATE 20 MG TABLET PO SCH (09:31)
[2023-04-09] MEDS: ASPIRIN 81 MG CHEWABLE TABLETS PO SCH (09:31)
[2023-04-09] MEDS: BACITRACIN 0.9 GM PACKET TP SCH (09:32)
[2023-04-09] MEDS: PRENATAL VITAMINS W/ FOLIC ACID TABLET (FP) PO SCH (09:32)
[2023-04-09] MEDS: NICOTINE 14 MG/24 HOURS TOPICAL PATCH TD SCH (09:33)
[2023-04-09] MEDS: ATORVASTATIN CA 40 MG TABLET (FP) PO SCH (21:22)
[2023-04-09] MEDS: THIAMINE HCL 100 MG TABLET (FP) PO SCH (21:22)
[2023-04-09] MEDS: MELATONIN 5 MG TABLETS PO SCH (21:23)
[2023-04-10] MEDS: CEPHALEXIN MONOHYDRATE 500 MG CAPSULE (UD) PO SCH ×4 (00:04→17:44)
[2023-04-10] MEDS: metFORMIN HCL 500 MG TABLET (FP) PO SCH ×2 (07:45→17:43)
[2023-04-10] MEDS: ABACAVIR/DOLUTEGRAVIR/LAMIVUDI (TRIUMEQ) TABLET PO SCH (09:40)
[2023-04-10] MEDS: PRENATAL VITAMINS W/ FOLIC ACID TABLET (FP) PO SCH (09:40)
[2023-04-10] MEDS: ASPIRIN 81 MG CHEWABLE TABLETS PO SCH (09:40)
[2023-04-10] MEDS: ARIPiprazole 5 MG TABLET PO SCH (09:40)
[2023-04-10] MEDS: LOSARTAN POTASSIUM 50 MG TABLET PO SCH (09:40)
[2023-04-10] MEDS: ESCITALOPRAM OXALATE 20 MG TABLET PO SCH (09:40)
[2023-04-10] MEDS: amLODIPine BESYLATE 10 MG TABLET (FP) PO SCH (09:40)
[2023-04-10] MEDS: BACITRACIN 0.9 GM PACKET TP SCH (09:40)
[2023-04-10] MEDS: NICOTINE 14 MG/24 HOURS TOPICAL PATCH TD SCH (09:41)
[2023-04-10] MEDS: MELATONIN 5 MG TABLETS PO SCH (21:25)
[2023-04-10] MEDS: THIAMINE HCL 100 MG TABLET (FP) PO SCH (21:25)
[2023-04-10] MEDS: ATORVASTATIN CA 40 MG TABLET (FP) PO SCH (21:25)
[2023-04-11] MEDS: CEPHALEXIN MONOHYDRATE 500 MG CAPSULE (UD) PO SCH ×5 (00:35→23:49)
[2023-04-11] MEDS: metFORMIN HCL 500 MG TABLET (FP) PO SCH ×2 (08:12→17:01)
[2023-04-11] MEDS: ASPIRIN 81 MG CHEWABLE TABLETS PO SCH (09:37)
[2023-04-11] MEDS: LOSARTAN POTASSIUM 50 MG TABLET PO SCH (09:37)
[2023-04-11] MEDS: BACITRACIN 0.9 GM PACKET TP SCH (09:37)
[2023-04-11] MEDS: ARIPiprazole 5 MG TABLET PO SCH (09:37)
[2023-04-11] MEDS: amLODIPine BESYLATE 10 MG TABLET (FP) PO SCH (09:37)
[2023-04-11] MEDS: PRENATAL VITAMINS W/ FOLIC ACID TABLET (FP) PO SCH (09:37)
[2023-04-11] MEDS: ESCITALOPRAM OXALATE 20 MG TABLET PO SCH (09:37)
[2023-04-11] MEDS: NICOTINE 14 MG/24 HOURS TOPICAL PATCH TD SCH (09:38)
[2023-04-11] MEDS: ABACAVIR/DOLUTEGRAVIR/LAMIVUDI (TRIUMEQ) TABLET PO SCH (09:48)
[2023-04-11] MEDS: ATORVASTATIN CA 40 MG TABLET (FP) PO SCH (21:25)
[2023-04-11] MEDS: THIAMINE HCL 100 MG TABLET (FP) PO SCH (21:26)
[2023-04-11] MEDS: MELATONIN 5 MG TABLETS PO SCH (21:26)
[2023-04-12 07:05] VITALS: TEMP 97.5
[2023-04-12] MEDS: metFORMIN HCL 500 MG TABLET (FP) PO SCH ×2 (07:47→17:24)
[2023-04-12] MEDS: CEPHALEXIN MONOHYDRATE 500 MG CAPSULE (UD) PO SCH ×3 (07:47→17:24)
[2023-04-12] MEDS: ASPIRIN 81 MG CHEWABLE TABLETS PO SCH (09:46)
[2023-04-12] MEDS: ARIPiprazole 5 MG TABLET PO SCH (09:46)
[2023-04-12] MEDS: PRENATAL VITAMINS W/ FOLIC ACID TABLET (FP) PO SCH (09:46)
[2023-04-12] MEDS: ESCITALOPRAM OXALATE 20 MG TABLET PO SCH (09:46)
[2023-04-12] MEDS: LOSARTAN POTASSIUM 50 MG TABLET PO SCH (09:46)
[2023-04-12] MEDS: amLODIPine BESYLATE 10 MG TABLET (FP) PO SCH (09:46)
[2023-04-12] MEDS: ABACAVIR/DOLUTEGRAVIR/LAMIVUDI (TRIUMEQ) TABLET PO SCH (09:46)
[2023-04-12] MEDS: NICOTINE 14 MG/24 HOURS TOPICAL PATCH TD SCH (09:47)
[2023-04-12] MEDS: BACITRACIN 0.9 GM PACKET TP SCH (09:47)
[2023-04-12] MEDS: THIAMINE HCL 100 MG TABLET (FP) PO SCH (21:34)
[2023-04-12] MEDS: MELATONIN 5 MG TABLETS PO SCH (21:34)
[2023-04-12] MEDS: ATORVASTATIN CA 40 MG TABLET (FP) PO SCH (21:35)
[2023-04-13] MEDS: CEPHALEXIN MONOHYDRATE 500 MG CAPSULE (UD) PO SCH ×2 (00:30→08:00)
[2023-04-13 06:15] VITALS: RESP 17
[2023-04-13] MEDS: metFORMIN HCL 500 MG TABLET (FP) PO SCH (07:59)
[2023-04-13] MEDS: ASPIRIN 81 MG CHEWABLE TABLETS PO SCH (09:43)
[2023-04-13] MEDS: ARIPiprazole 5 MG TABLET PO SCH (09:43)
[2023-04-13] MEDS: PRENATAL VITAMINS W/ FOLIC ACID TABLET (FP) PO SCH (09:43)
[2023-04-13] MEDS: ABACAVIR/DOLUTEGRAVIR/LAMIVUDI (TRIUMEQ) TABLET PO SCH (09:43)
[2023-04-13] MEDS: LOSARTAN POTASSIUM 50 MG TABLET PO SCH (09:43)
[2023-04-13] MEDS: amLODIPine BESYLATE 10 MG TABLET (FP) PO SCH (09:43)
[2023-04-13] MEDS: ESCITALOPRAM OXALATE 20 MG TABLET PO SCH (09:43)
[2023-04-13] MEDS: BACITRACIN 0.9 GM PACKET TP SCH (09:43)
[2023-04-13] MEDS: NICOTINE 14 MG/24 HOURS TOPICAL PATCH TD SCH (09:44)
[2023-04-13 11:22] VITALS: BP 118/60; PULSE 79
== END 2023-04-13 10:20 | disposition home or self-care (01) | DRG 772 ==
LOC: YASAS 15:00 → Y5N 20:05
PROVIDERS: ADMIT Allergy & Immunology; ATTEND Psychiatry & Neurology Pain Medicine
PROC: HZ42ZZZ Group Counseling for Substance Abuse Treatment, Cognitive-Behavioral (ICD-10-PCS; principal; 2023-03-25)
DX: F10.20 Alcohol dependence, uncomplicated (principal); F14.20 Cocaine dependence, uncomplicated; F17.210 Nicotine dependence, cigarettes, uncomplicated; F19.24 Other psychoactive substance dependence with psychoactive substance-induced mood disorder; F32.9 Major depressive disorder, single episode, unspecified; B20 Human immunodeficiency virus [HIV] disease; L03.115 Cellulitis of right lower limb; I10 Essential (primary) hypertension; E78.5 Hyperlipidemia, unspecified; E11.9 Type 2 diabetes mellitus without complications; Z79.84 Long term (current) use of oral hypoglycemic drugs; Z79.899 Other long term (current) drug therapy; Z91.148 Patient's other noncompliance with medication regimen for other reason
CPT/HCPCS: 36415; 80053; 81003; 82962; 85027; 86593; 86780; 86803; 87635; 93005; 93010

== ENCOUNTER 2023-12-20 10:22 | Inpatient (IN) | payer OTHER ==
[2023-12-20 11:09] VITALS: BMI 27.6
[2023-12-20] MEDS ORDERED: NALOXONE HCL 0.4 MG/ML VIAL IM PRN (12:27)
[2023-12-20] MEDS ORDERED: BENZOCAINE/MENTHOL (CHLORASEPTIC ) LOZENGE MM PRN (12:27)
[2023-12-20] MEDS ORDERED: NALOXONE HCL (KLOXXADO) 8 MG SPRAY NS PRN (12:27)
[2023-12-20] MEDS ORDERED: BISMUTH SUBSALICYLATE 524 MG/30 ML PO PRN (12:27)
[2023-12-20] MEDS ORDERED: MAG HYDROX/AL HYDROX/SIMETH 30 ML UNIT-DOSE CUP PO PRN (12:27)
[2023-12-20] MEDS ORDERED: chlordiazePOXIDE HCL 25 MG CAPSULE PO PRN (12:27)
[2023-12-20] MEDS ORDERED: IBUPROFEN 600 MG TABLET (FP) PO PRN (12:27)
[2023-12-20] MEDS ORDERED: ACETAMINOPHEN 325 MG TABLET (FP) PO PRN (12:27)
[2023-12-20] MEDS ORDERED: DICYCLOMINE HCL 10 MG CAPSULE PO PRN (12:27)
[2023-12-20] MEDS ORDERED: IBUPROFEN 400 MG TABLET (FP) PO PRN (12:27)
[2023-12-20] MEDS ORDERED: guaiFENesin 600 MG TABLET.ER (FP) PO PRN (12:27)
[2023-12-20] MEDS ORDERED: hydrOXYzine PAMOATE 25 MG CAPSULE (FP) PO PRN (12:27)
[2023-12-20] MEDS ORDERED: LOPERAMIDE HCL 2 MG CAPSULE PO PRN (12:27)
[2023-12-20] MEDS ORDERED: ONDANSETRON *ODT* 4 MG TABLET SL PRN (12:27)
[2023-12-20] MEDS ORDERED: POLYETHYLENE GLYCOL (HEALTHYLAX) 3350 17 GM PACKET PO PRN (12:27)
[2023-12-20] MEDS ORDERED: METHOCARBAMOL 500 MG TABLET PO PRN (12:27)
[2023-12-20] MEDS ORDERED: BENZONATATE 200 MG CAPSULE PO PRN (12:27)
[2023-12-20] MEDS ORDERED: MAGNESIUM HYDROX 2400MG/30ML ORAL SUSPENSION 30 ML CUP PO PRN (12:27)
[2023-12-20] MEDS ORDERED: amLODIPine BESYLATE 5 MG TABLET (FP) ONE (13:03)
[2023-12-20] MEDS: amLODIPine BESYLATE 10 MG TABLET (FP) PO SCH (13:06)
[2023-12-20] MEDS: ASPIRIN 81 MG CHEWABLE TABLETS PO SCH (13:06)
[2023-12-20] MEDS: ABACAVIR/DOLUTEGRAVIR/LAMIVUDI (TRIUMEQ) TABLET PO SCH (13:09)
[2023-12-20] MEDS: LOSARTAN POTASSIUM 50 MG TABLET PO SCH (13:09)
[2023-12-20] MEDS ORDERED: INSULIN (NOVOLOG) ASPART 100 UNITS/ML 10ML VIAL ONE (17:02)
[2023-12-20] MEDS: metFORMIN HCL 500 MG TABLET (FP) PO SCH (17:15)
[2023-12-20] MEDS: INSULIN ASPART SLIDING SCALE (NOVOLOG) 1 VIAL SQ SCH (17:15)
[2023-12-20] MEDS: MELATONIN 5 MG TABLETS PO SCH (22:48)
[2023-12-20] MEDS: chlordiazePOXIDE HCL 25 MG CAPSULE PO SCH (22:48)
[2023-12-20] MEDS: THIAMINE 100 MG TABLET PO SCH (22:48)
[2023-12-20] MEDS: ATORVASTATIN CA 40 MG TABLET (FP) PO SCH (22:48)
[2023-12-21] MEDS ORDERED: cloNIDine HCL 0.1 MG TABLET PO PRN (10:42)
[2023-12-21] MEDS: PRENATAL VITAMINS W/ FOLIC ACID TABLET (FP) PO SCH (11:22)
[2023-12-21] MEDS ORDERED: ESCITALOPRAM OXALATE 10 MG TABLET ONE (11:24)
[2023-12-21] MEDS: ARIPiprazole 5 MG TABLET PO SCH (11:25)
[2023-12-21] MEDS: ESCITALOPRAM OXALATE 20 MG TABLET PO SCH (11:25)
[2023-12-21 12:59] LABS: HEMATOCRIT 39.9 % (32.4-45.2); HEMOGLOBIN 13.2 GM/dL (10.7-15.3); MCH 30.4 pg (25.7-33.7); MEAN CELL VOLUME 91.9 fl (80-96); MEAN PLT VOLUME 7.9 fl (7.5-11.1); PLATELET COUNT 325 10^3/uL (134-434); RBC 4.35 M/mm3 (3.60-5.2); RDW 14.5 % (11.6-15.6); WHITE BLOOD COUNT 5.3 K/mm3 (4.0-10.0)
[2023-12-21 13:43] LABS: POTASSIUM 3.8 mmol/L (3.5-5.1)
[2023-12-21 13:51] LABS: ALBUMIN 2.7 g/dl (3.4-5.0); BLOOD UREA NITROGEN 14.8 mg/dL (7-18)
[2023-12-21 13:54] LABS: CREATININE 0.9 mg/dL (0.55-1.3)
[2023-12-21 13:55] LABS: BILIRUBIN,TOTAL 0.4 mg/dL (0.2-1)
[2023-12-21 13:56] LABS: TOT PROT 6.6 g/dl (6.4-8.2)
[2023-12-22] MEDS: chlordiazePOXIDE HCL 25 MG CAPSULE PO SCH (05:05)
[2023-12-22] MEDS ORDERED: ESCITALOPRAM OXALATE 10 MG TABLET ONE (10:15)
[2023-12-22] MEDS ORDERED: INSULIN (NOVOLOG) ASPART 100 UNITS/ML 10ML VIAL ONE (16:48)
[2023-12-23] MEDS ORDERED: chlordiazePOXIDE HCL 10 MG CAPSULE PO PRN
[2023-12-23] MEDS: chlordiazePOXIDE HCL 10 MG CAPSULE PO SCH (05:24)
[2023-12-23] MEDS ORDERED: ESCITALOPRAM OXALATE 10 MG TABLET ONE (10:28)
[2023-12-24] MEDS: chlordiazePOXIDE HCL 10 MG CAPSULE PO SCH (06:00)
[2023-12-24] MEDS ORDERED: ESCITALOPRAM OXALATE 10 MG TABLET ONE (10:46)
[2023-12-25] MEDS: chlordiazePOXIDE HCL 10 MG CAPSULE PO ONE (05:50)
[2023-12-25 09:49] VITALS: BP 153/79; PULSE 89; RESP 18; TEMP 97.6
[2023-12-25] MEDS ORDERED: ESCITALOPRAM OXALATE 10 MG TABLET ONE (10:03)
== END 2023-12-25 11:25 | disposition home or self-care (01) | DRG 774 ==
LOC: YASAS 10:22 → Y6N 12:44
PROVIDERS: ADMIT Allergy & Immunology; ATTEND Surgery
PROC: HZ2ZZZZ Detoxification Services for Substance Abuse Treatment (ICD-10-PCS; principal; 2023-12-20)
DX: F10.230 Alcohol dependence with withdrawal, uncomplicated (principal); F14.20 Cocaine dependence, uncomplicated; F17.210 Nicotine dependence, cigarettes, uncomplicated; F25.1 Schizoaffective disorder, depressive type; F19.282 Other psychoactive substance dependence with psychoactive substance-induced sleep disorder; F19.24 Other psychoactive substance dependence with psychoactive substance-induced mood disorder; B20 Human immunodeficiency virus [HIV] disease; I10 Essential (primary) hypertension; E78.5 Hyperlipidemia, unspecified; E11.9 Type 2 diabetes mellitus without complications; Z79.84 Long term (current) use of oral hypoglycemic drugs; Z59.00 Homelessness unspecified
CPT/HCPCS: 36415; 80053; 80305; 80307; 82140; 82962; 83036; 85027; 86593; 86780; 93005; 93010

== ENCOUNTER 2025-05-17 13:05 | Inpatient (IN) | payer OTHER ==
[2025-05-17] MEDS: THIAMINE 100 MG TABLET PO SCH (10:36)
[2025-05-17 14:12] VITALS: BMI 27.4
[2025-05-17] MEDS ORDERED: MAGNESIUM HYDROX 2400MG/30ML ORAL SUSPENSION 30 ML CUP PO PRN (14:37)
[2025-05-17] MEDS ORDERED: BENZOCAINE/MENTHOL (CHLORASEPTIC ) LOZENGE MM PRN (14:37)
[2025-05-17] MEDS ORDERED: IBUPROFEN 600 MG TABLET (FP) PO PRN (14:37)
[2025-05-17] MEDS ORDERED: guaiFENesin 600 MG TABLET.ER (FP) PO PRN (14:37)
[2025-05-17] MEDS ORDERED: BENZONATATE 200 MG CAPSULE PO PRN (14:37)
[2025-05-17] MEDS ORDERED: ACETAMINOPHEN 325 MG TABLET (FP) PO PRN (14:37)
[2025-05-17] MEDS ORDERED: NICOTINE POLACRILEX 2 MG GUM BUC PRN (14:37)
[2025-05-17] MEDS ORDERED: METHOCARBAMOL 500 MG TABLET PO PRN (14:37)
[2025-05-17] MEDS ORDERED: ONDANSETRON *ODT* 4 MG TABLET SL PRN (14:37)
[2025-05-17] MEDS ORDERED: MAG HYDROX/AL HYDROX/SIMETH 30 ML UNIT-DOSE CUP PO PRN (14:37)
[2025-05-17] MEDS ORDERED: NALOXONE (NARCAN) HCL 4 MG/0.1 ML SPRAY NS PRN (14:37)
[2025-05-17] MEDS ORDERED: hydrOXYzine PAMOATE 25 MG CAPSULE (FP) PO PRN (14:37)
[2025-05-17] MEDS ORDERED: BISMUTH SUBSALICYLATE 524 MG/30 ML PO PRN (14:37)
[2025-05-17] MEDS ORDERED: DICYCLOMINE HCL 10 MG CAPSULE PO PRN (14:37)
[2025-05-17] MEDS ORDERED: LOPERAMIDE HCL 2 MG CAPSULE PO PRN (14:37)
[2025-05-17] MEDS ORDERED: IBUPROFEN 400 MG TABLET (FP) PO PRN (14:37)
[2025-05-17] MEDS ORDERED: POLYETHYLENE GLYCOL (HEALTHYLAX) 3350 17 GM PACKET PO PRN (14:37)
[2025-05-17] MEDS ORDERED: PRENATAL VITAMINS W/ FOLIC ACID TABLET (FP) PO ONE (15:41)
[2025-05-17] MEDS: PRENATAL VITAMINS W/ FOLIC ACID TABLET (FP) PO SCH (15:43)
[2025-05-17] MEDS: metFORMIN HCL 500 MG TABLET (FP) PO SCH (17:43)
[2025-05-17] MEDS: ATORVASTATIN CA 40 MG TABLET (FP) PO SCH (22:36)
[2025-05-17] MEDS: MELATONIN 5 MG TABLETS PO SCH (22:36)
[2025-05-17] MEDS: NYSTATIN 100000 UNIT/GM TOPICAL OINTMENT 15 GM TUBE TP SCH (23:23)
[2025-05-18 09:55] LABS: MCHC 30.6 g/dl (32.2-35.5); MEAN CELL VOLUME 95.4 fl (79.4-94.8); MEAN PLT VOLUME 9.5 fl (9.4-12.3); RDW 14.6 % (12.4-16.4)
[2025-05-18 10:18] LABS: GLUCOSE,RANDOM 132 mg/dL (74-106)
[2025-05-18 10:19] LABS: CO2 27 mmol/L (21-32); TOT PROT 6.7 g/dl (6.4-8.2)
[2025-05-18 10:21] LABS: ALK PHOS 88 U/L (40-150)
[2025-05-18 10:24] LABS: CREATININE 1.08 mg/dL (0.55-1.3); SGOT/AST 29 U/L (5-34); SGPT/ALT 19 U/L (0-55)
[2025-05-18] MEDS: ABACAVIR/DOLUTEGRAVIR/LAMIVUDI (TRIUMEQ) TABLET PO SCH (11:04)
[2025-05-18] MEDS: amLODIPine BESYLATE 10 MG TABLET (FP) PO SCH (11:06)
[2025-05-18] MEDS: LOSARTAN POTASSIUM 50 MG TABLET PO SCH (11:06)
[2025-05-18] MEDS: ASPIRIN 81 MG CHEWABLE TABLETS PO SCH (11:06)
[2025-05-18 11:39] LABS: SYPHILIS W/ RPR CONF REACTIVE (NONREACTIVE)
[2025-05-18] MEDS: ESCITALOPRAM OXALATE 10 MG TABLET PO SCH (13:47)
[2025-05-19 14:50] LABS: RPR REFLEX REACTIVE 1:1 (NONREACTIVE)
[2025-05-20 09:33] VITALS: BP 151/88; PULSE 90; RESP 15; TEMP 98.4
== END 2025-05-20 15:15 | disposition home or self-care (01) | DRG 774 ==
LOC: YASAS 13:05 → Y6N 15:27
PROVIDERS: ADMIT Allergy & Immunology; ATTEND Student in an Organized Health Care Education/Training Program
PROC: HZ2ZZZZ Detoxification Services for Substance Abuse Treatment (ICD-10-PCS; principal; 2025-05-17)
DX: F10.230 Alcohol dependence with withdrawal, uncomplicated (principal); F14.20 Cocaine dependence, uncomplicated; F17.210 Nicotine dependence, cigarettes, uncomplicated; G47.00 Insomnia, unspecified; I10 Essential (primary) hypertension; E78.5 Hyperlipidemia, unspecified; F41.8 Other specified anxiety disorders; F20.9 Schizophrenia, unspecified; E11.9 Type 2 diabetes mellitus without complications; Z21 Asymptomatic human immunodeficiency virus [HIV] infection status; Z59.00 Homelessness unspecified
CPT/HCPCS: 36415; 80053; 80305; 80307; 81025; 82962; 85027; 86593; 86780; 93005; 93010